=== PATIENT | male | born 1950 | race Caucasian/White ===

== ENCOUNTER 2020-04-12 09:47 | Outpatient (CLI) | payer OTHER, SELFPAY ==
--- NOTE | 2020-04-12 10:00 | CT_ITS ---
WS: [id number] CTA ABDOMINAL AORTA WITH RUNOFF TECHNIQUE: Contrast enhanced CTA of the abdominal aorta with bilateral lower extremity runoff. Multip lanar reformatted images were obtained. MIP reformats were also reviewed. CLINICAL INFORMATION: PVD claudication COMPARISON: None. DLP: 1466.[address] scans at [facility] use at least one of these dose optimization techniques: automat ed exposure control; mA and/or kV adjustment per patient size (includes targeted exams where dose is matched to clinical indication); or iterative reconstruction. FINDINGS: Normal Caliber abdominal aorta. No abdominal aortic aneurysm. Moderate to severe stenosis i nvolving the distal abdominal aorta measuring approximately 40% with peripheral mural thrombus and at heromatous disease. Celiac and SMA are patent. Proximal renal arteries are patent. Bilateral accessor y renal arteries. Inferior mesenteric artery is patent. Liver is normal. Cholelithiasis. Portal vein and splenic vein are patent. Small esophageal hiatal hernia. Lung bases are well aerated. Normal sple en. Normal pancreas. Adrenal glands are normal. Normal renal parenchymal enhancement. No hydronephros is. Small bilateral renal cysts. No abdominal lymphadenopathy. Prominent prostate measuring 4.5 CM. RIGHT: Right common iliac artery is patent with moderate atheromatous disease. Mild stenosis at the o rigin. Right external and internal iliac arteries are patent. Right common femoral artery is patent w ith approximately 40% stenosis in the groin. Superficial femoral and deep femoral arteries are patent . Mild segmental narrowing superficial femoral artery which remains patent to the popliteal hiatus. P opliteal artery is patent with moderate segmental narrowing with dense calcification. Approximately 4 0-50% stenosis above the knee which remains patent. Popliteal artery remains patent to the trifurcati on. Dense calcification at the trifurcation below the knee with dominant two-vessel runoff to the ank le. Poor anterior tibial runoff. LEFT: Left common iliac artery is patent. Mild stenosis of the left common iliac artery origin. Exter nal and internal iliac arteries are patent. Common femoral artery is patent. Mild stenosis at the sup erficial femoral artery origin which remains patent. Deep femoral artery is patent. Mild segmental na rrowing superficial femoral artery which remains patent to the popliteal hiatus. Multisegmental moder ate stenosis involving the popliteal artery. Dense peripheral calcified atheromatous disease. Short s egment popliteal artery occlusion involving with reconstitution just [id number]. Popliteal artery remains patent to the trifurcation. Dense calcification at the trifurcation. Two-vessel runoff to th e ankle with no significant flow in the anterior tibial artery. IMPRESSION: 1. Moderate stenosis in the distal abdominal aorta measuring approximately 40% which remains patent. 2. Short segment LEFT popliteal artery occlusion. This reconstitutes shortly thereafter. 3. Mirror-image popliteal artery narrowing RIGHT lower extremity with maximal stenosis measuring 40- 50%. Right popliteal artery remains patent to the trifurcation. 4. Mirror image 2 vessel runoff to both ankles with poor anterior tibial artery contribution. 5. Cholelithiasis. This can be further evaluated ultrasound. 6. Prominent prostate. Recommend correlation PSA.
[2020-04-12 10:31] LABS: Blood Urea Nitrogen 8 mg/dL (8-23)
[2020-04-12] MEDS: iohexol 350 mg/mL 100 mL Btl IV (10:38)
== END 2020-04-12 09:48 | disposition home or self-care (01) ==
LOC: RADWPI 09:52
PROVIDERS: Visit Provider Internal Medicine Cardiovascular Disease
DX: I73.9 Peripheral vascular disease, unspecified (principal); N40.0 Benign prostatic hyperplasia without lower urinary tract symptoms; K80.20 Calculus of gallbladder without cholecystitis without obstruction
CPT/HCPCS: 75635; 82565; 84520; Q9967

== ENCOUNTER → 2020-11-10 13:18 | Outpatient (BNVA) | payer OTHER, SELFPAY | PROVIDERS: Visit Provider Internal Medicine Cardiovascular Disease | DX: Z20.822 Contact with and (suspected) exposure to COVID-19 (principal) | CPT/HCPCS: 87635 ==

== ENCOUNTER 2020-11-17 16:14 | Observation (INO) | payer OTHER, MEDICARE, SELFPAY ==
[2020-11-09 13:06] LABS: Basophils # 0.1 10^3/uL (0.0-0.1); Basophils % 0.8 %; Eosinophils # 0.2 10^3/uL (0.0-0.8); Eosinophils % 3.1 %; Hematocrit 45.5 % (42.0-52.0); Lymphocytes # 1.6 10^3/uL (0.8-4.8); Mean Corpuscular Hemoglobin 29.7 pg (28.0-34.0); Mean Corpuscular Volume 90.1 fL (80-94); Mean Platelet Volume 12.1 fL (7.4-10.4); Monocytes # 0.5 10^3/uL (0.2-0.9); Monocytes % 7.3 %; Neutrophils # 4.98 10^3/uL (1.8-7.7); Neutrophils % 67.1 %; Nucleated Red Blood Cells % 0 %; Platelet Count 210 10^3/cmm (130-400); Red Blood Count 5.05 10^6/uL (4.1-5.3); White Blood Count 7.4 10^3/uL (4.0-10.0)
[2020-11-09 13:17] LABS: INR 0.97 (0.8-1.2)
[2020-11-09 13:43] LABS: Anion Gap 13.7 (5-19); Blood Urea Nitrogen 18 mg/dL (8-23); Calcium 9.3 mg/dL (8.5-10.5); Carbon Dioxide 28 mmol/L (22-29); Chloride 95 mmol/L (98-107); Glucose 346 mg/dL (65-115); Osmolality Calculated 290 mOsm/kg (285-295); Potassium 4.7 mmol/L (3.5-5.1); Sodium 132 mmol/L (136-145)
[2020-11-17] VITALS (33 sets, daily range): BP systolic 135–228; BP diastolic 59–119; PULSE 51–67; RESP 9–23; TEMP 36.6–36.7; O2SAT 94–98; BMI 32.9
--- NOTE | 2020-11-17 11:00 | XACV_ITS ---
Wt: 101 kg BSA: 2.25 m2 Any Known Allergies: Other Gender: Male : 1950 Exam Type: Invasive Peripheral Vascular Procedure(s): Procedure Description: Peripheral Cath Diagnostic Procedure Procedure Description: Abdominal aortic angiography Procedure Description: Lower extremities' angiography Procedure Description: Peripheral vascular Intervention Procedure Description: PV Balloon Exam Priority: Routine Lower Extremity Interventional Findings Indication for peripheral angiogram: Lifestyle limiting claudication, Maria L classification 2 , [place] 3Abdominal angiogram: Abdominal angiogram without aneurysm normal aortaRenal artery bilateral no significant stenosisBilateral common iliac normalBilateral external and internal iliac are normalBilateral common femoral, normalBilateral profundofemoralLeft superficial femoral artery mid to distal tendon severe stenosis especially in the distal segment just before left popliteal there is subtotal occluded shot stenosis, there appeared to be culpritRight SFA: Luminal irregularities except in the distal segment there is a moderate stenosisBilateral popliteal and tibioperoneal trunk has luminal irregularityBilateral two-vessel runoff noted. Conclusions Indication for peripheral angiogram: Lifestyle limiting claudication, Maria L classification 2 , [place] 3Abdominal angiogram: Abdominal angiogram without aneurysm normal aortaRenal artery bilateral no significant stenosisBilateral common iliac normalBilateral external and internal iliac are normalBilateral common femoral, normalBilateral profundofemoralLeft superficial femoral artery mid to distal tendon severe stenosis especially in the distal segment just before left popliteal there is subtotal occluded shot stenosis, there appeared to be culpritRight SFA: Luminal irregularities except in the distal segment there is a moderate stenosisBilateral popliteal and tibioperoneal trunk has luminal irregularityBilateral two-vessel runoff noted. null was treated with two Balloon. Recommendations Continue current medical management and risk factor modification. Follow up with PCP as directed. Continue medical management and risk factor modification. Hemodynamic Data Phase:Rest AO : 142.0 / 57.0 ( 87.0 ) @ 9:39:00 AM Access Site Site: Right Femoral artery Sheath Size: 6 Fr Hemost... Method: Suture Hemost... Success: Successful Procedure Details Findings Procedure Consent Obtained. Pre-Procedure Time Out. Identified patient by full name and date of as verbalized by the patient/guarantor. Does the consent match the physician's order: Yes. Accurate & Complete Informed Consent: Yes. Inpatient/Outpatient History & Physical on Chart: Yes. If H&P is completed, is and addenduem needed: No; If yes, is the addendum complete: N/A. Visualize and Verify Site with Patient/Guarantor: N/A. Relevant Radiology Images available: N/A. Pre-op teaching completed and patient verbalized understanding. The risks, benefits, and alternatives of sedation and/or procedure were discussed by physician. The patient agrees to continue. Procedure started. Correct patient, site and procedure confirmed by cath team. PERRLA. Strong, equal hand machine lacer bilaterally. Lungs clear x 5 lobes. IV Site on Arrival: 20 gauge in the left anticubital. IV Fluids: 0.9% NaCl at KVO. 0 mL infused prior to agriculture laborer. Physician arrived. Equipment: Peripheral. Pre Procedural Pulses: right dorsalis pedis was Absent. Pre Procedural Pulses: left dorsalis pedis was 2+. Pre Procedural Pulses: bilateral posterior tibial was 1+. Pre Procedural Pulses: bilateral radial was 2+. Oxygen started at 2liters/min via nasal canula. bilateral groins was prepped with chloroprep then draped in the usual sterile fashion. Baseline sample Acquired. HR: 62 BPM. Physician scrubbed in. Immediate Pre-Procedure Time Out. Correct Patient: Yes; Correct Procedure: Yes; Correct Site: Yes; Correct Patient Position: Yes; Correct Supplies: Yes; Dried Flammable Prep: Yes; Blood Products Available: N/A;. Lidocaine 1% infiltrated to the right groin. Arterial access obtained with micropuncture set. Cardiac Cath Pack. ACIST Manifold Kit Model BT 2000. Heparinized Saline (2 units/mL), 1000 mL bag. Inventory is JJ 6F 11cm Brisa Plus Sheath. A CORDIS 5F UF catheter 65cm was advanced over the wire and used for Abdominal aortogram with runoff. Abdominal aortogram performed in AP @ 10 mL/sec for a total of 30 mL. Glidewire inserted to L SFA. Catheter removed over the glide wire. Short 6 fr sheath exchanged for long 45 cm 6 Fr Flexor sheath. Inventory is CK 6 FR FLEXOR SHEATH 45CM. Left leg runoff 10 ml for total 20 ml. Left leg runoff 10 ml for total 20 ml. AB [place] 35 OTW [id number] balloon inserted. Wire came back. Balloon removed. SEEKER support catheter inserted over glidewire. Seated in the popliteal. Hand injection through Seeker. Glidewire inserted and seated in peroneal trunk. Seeker catheter out. Side port of sheath attached to Normal Saline flush at KVO to maintain patency. Inflation number : 1 A AB ARMADA 35 OTW [id number] was prepped and advanced across the Superficial Femoral, Left , then inflated to 10 RUDI for 2:03 seconds. Balloon out over wire. Inflation number : 2 A Bard Lutonix 035 6.0x40mm was prepped and advanced across the Superficial Femoral, Left , then inflated to 7 RUDI for 1:01 seconds. Inflation number: 3 The Bard Lutonix 035 6.0x40mm was reinflated across the Superficial Femoral, Left, to 7 RUDI for 1:01 seconds. Inflation number: 4 The Bard Lutonix 035 6.0x40mm was reinflated across the Superficial Femoral, Left, to 7 RUDI for 0:30 seconds. Balloon pulled back. Left leg runoff 10 ml for total 20 ml. Balloon out over wire. Left leg runoff 10 ml for total of 30 ml. Long 45 cm 6 fr flexor sheath exchanged for short 6 fr sheath. Glidewire out. Right leg runoff through sheath 10 ml for total of 30 ml. Physician scrubbed out. A Suture was successful obtaining hemostatsis at the Right Femoral artery insertion site. Sheath(s) sutured into position with 2-0 silk and sterile 4x4's and Op-site applied over the site. No oozing or signs and symptoms of hematoma noted. Post Procedure: Pulses reassessed and unchanged. PERRLA. Strong, equal hand machine lacer bilaterally. No VTE prophylaxis required. Medication's Wasted: Heparin = 2000 units. Total IV fluids: 75 mL. Contrast type used: Visipaque 320 mgI/mL, 500 mL bottle. Post-op diagnosis: PVD. Complications: none. Estimated blood loss: 5mL-10mL. Estimated blood loss: 5mL-10mL. Procedure completed. Patient transferred by bed to 1st floor. Vital chart was stopped. Procedure Medications Start: 2:27 PM Stop: 2:27 PM Medication: Versed Amount: 1 mg Route: I.V. Start: 2:27 PM Stop: 2:27 PM Medication: Fentanyl Amount: 50 mcg Route: I.V. Start: 2:34 PM Stop: 2:34 PM Medication: Versed Amount: 1 mg Route: I.V. Start: 2:34 PM Stop: 2:34 PM Medication: Fentanyl Amount: 50 mcg Route: I.V. Start: 2:48 PM Stop: 2:48 PM Medication: Heparin Amount: 7000 units Route: I.V. I, the attending physician, have reviewed and verified all procedure medications. Yes, all medications given per verbal order History/Risk Factors Hypertension: Yes Dyslipidemia: Yes Peripheral Arterial Disease (PAD): Yes Obesity: Yes Renal Disease: No Prior Interventions PCI: No CABG: Yes Valve Surgery: No Report Signatures Finalized by Christine Escobedo MD on 12/03/2020 08:25 PM
[2020-11-17] MEDS: diphenhydrAMINE 50 mg Capsule PO (11:50)
--- NOTE | 2020-11-17 14:12 | W.PM.OPSFHP ---
Same Day Surgery H&P Indication for Procedure/HPI DATE OF PROCEDURE: November 17, 2020 CHIEF COMPLAINT/INDICATIONFOR SURGICAL PROCEDURE: Lifestyle limiting claudication more on the left than right PREOP DIAGNOSIS: Severe peripheral vascular disease lifestyle limiting claudication. PLANNED PROCEDRUE: Operation Date: 11/17/20 12:00 Proposed Procedures p Peripheral angiogram 69321 I73.9(Not Applicable) - Christine Escobedo MD 70-year-old male past medical history significant for coronary artery disease status post CABG, COPD, smoking, hypertension for worsening of lifestyle limiting claudication has been referred for CT angiogram which showed occlusion of left popliteal vessel. Patient failed conservative management including cilostazol and walking exercises. He is here for peripheral angiogram now for possible intervention. Patient has been explained all risk benefit and alternative for the procedure. He would like to proceed with it. Patient understand the risk of major minor bleed, infection hematoma laceration urgent emergent surgery acute limb ischemia amputation and worse case scenario . He understand the warning by FDA using drug-coated balloon and would like to use it even though it showed higher mortality in some subgroup. He has been consented for. Medications/Allergies* Home Medications Medication Instructions Recorded Confirmed Type glimepiride 4 mg tablet 4 mg PO DAILY 04/03/20 11/16/20 History insulin glargine 100 unit/mL 96 unit SUBCUT DAILY ml 04/03/20 11/16/20 History subcutaneous solution losartan 100 mg tablet 50 mg PO DAILY tab 04/03/20 11/16/20 History Allergies/Adverse Reactions Allergy/AdvReac Type Severity Reaction Status Date / Time gabapentin Allergy Unknown Unknown Verified 04/03/20 10:21 lisinopril Allergy Unknown Unknown Verified 04/03/20 10:21 lithium Allergy Unknown Unknown Verified 04/03/20 10:21 olanzapine Allergy Unknown Unknown Verified 04/03/20 10:24 quetiapine Allergy Unknown Unknown Verified 04/03/20 10:24 Current Medications: Generic Name Dose Route Start Last Admin Trade Name Freq PRN Reason Stop Dose Admin Sodium Chloride 1,000 mls @ 50 mls/hr 11/17/20 11:00 11/17/20 11:50 Sodium Chloride 0.9% IV 11/18/20 06:59 Not Given .Q20H ONE Pertinent History/Comorbid Conditions* Medical History (Updated 04/03/20 @ 13:13 by Christine Escobedo MD) Claudication in peripheral vascular disease Diabetes mellitus HTN (hypertension) Hyperlipidemia Surgical History (Updated 04/03/20 @ 13:12 by Christine Escobedo MD) S/P CABG (coronary artery bypass graft) Family History (Updated 04/03/20 @ 12:25 by Ava Decker LPN) Heart disease Father Social History Smoking and tobacco status: former smoker Pertinent Exam Findings alert, oriented x 3, clear to auscultation bilaterally and operative site marked Conscious Sedation Assessment PATIENT ASSESSED PRIOR TO SEDATION, WITH NO CHANGE NOTED: Yes AIRWAY EVAL/ANESTHESIA PLAN: ASA I, Risks, benefits & alternatives of sedation and/or procedure discussed and Patient agrees to continue as planned Recommendations Surgery/Procedure today Coding Level of Care Code Acute Domestic Housekeeper for Orestes Feliciano
--- NOTE | 2020-11-17 16:21 | PC.NURSE ---
spoke with Dr brar with concerns no sheath removal orders instructions to obtain PTT and pull if less than 45
--- NOTE | 2020-11-17 18:20 | PC.NURSE ---
notified Dr brar patient PTT results at this time instructions to redraw PTT in 2 hours
[2020-11-17 18:30] LABS: Glucose Point of Care 178 mg/dL (70-110)
[2020-11-17 19:51] LABS: Partial Thromboplastin Time 28.4 SECONDS (23.9-36.7)
[2020-11-17] MEDS: fentaNYL 50 mcg/mL INJ 2mL IVP (21:03)
--- NOTE | 2020-11-17 21:14 | PC.NURSE ---
sheath pulled without incident pressure held for 20 minutes with no hematoma or significant bleeding noted. Pulses remained present pre and post sheath pull. Pt denies any complaints at this time.
[2020-11-18] VITALS: BP 163/73; PULSE 53; RESP 18
--- NOTE | 2020-11-18 03:12 | PC.NURSE ---
Spoke with Dr. Torres regarding this patient's NS fluid orders. Pt has received 1 liter and received order to stop NS.
[2020-11-18 04:06] VITALS: BP 187/76; PULSE 54; RESP 20; TEMP 36.3; O2SAT 96
[2020-11-18 05:45] LABS: Basophils # 0.1 10^3/uL (0.0-0.1); Basophils % 0.9 %; Eosinophils # 0.3 10^3/uL (0.0-0.8); Eosinophils % 3.8 %; Hematocrit 45.6 % (42.0-52.0); Hemoglobin 14.8 g/dL (11.7-16.6); Lymphocytes # 1.5 10^3/uL (0.8-4.8); Lymphocytes % 19.9 %; Mean Corpuscular HGB Conc 32.5 g/dL (30.0-36.0); Mean Corpuscular Hemoglobin 29.4 pg (28.0-34.0); Mean Corpuscular Volume 90.7 fL (80-94); Mean Platelet Volume 12.7 fL (7.4-10.4); Monocytes # 0.7 10^3/uL (0.2-0.9); Monocytes % 8.6 %; Neutrophils # 5.01 10^3/uL (1.8-7.7); Neutrophils % 66.1 %; Nucleated Red Blood Cells % 0 %; Platelet Count 175 10^3/cmm (130-400); Red Blood Count 5.03 10^6/uL (4.1-5.3); Red Cell Distribution Width 13.2 % (12.1-15.1); White Blood Count 7.6 10^3/uL (4.0-10.0)
[2020-11-18 06:00] VITALS: PULSE 57
[2020-11-18 07:37] LABS: Blood Urea Nitrogen 18 mg/dL (8-23); Calcium 8.8 mg/dL (8.5-10.5); Carbon Dioxide 27 mmol/L (22-29); Chloride 102 mmol/L (98-107); Glucose 176 mg/dL (65-115); Osmolality Calculated 292 mOsm/kg (285-295); Sodium 138 mmol/L (136-145)
[2020-11-18 07:52] LABS: Anion Gap 13.8 (5-19); Potassium 4.8 mmol/L (3.5-5.1)
[2020-11-18] MEDS: losartan 50 mg Tablet PO ×2 (07:54→09:58)
[2020-11-18 08:00] VITALS: PULSE 62; RESP 19; TEMP 36.3; O2SAT 97
[2020-11-18 09:58] VITALS: BP 176/105
[2020-11-18] MEDS: amlodipine 10 mg Tablet PO (10:01)
--- NOTE | 2020-11-18 10:06 | P.SS_ITS ---
Short Stay Summary Providers Date of Admit/Discharge: 11/29/20 Attending Provider: Christine Escobedo MD Primary Care Provider: [facility] Chief Complaint: Peripheral Diagnostic HPI History of Present Illness Ravinder Vallejo is a 70 year old male with past medical history significant for coronary artery disease status post CABG, COPD, smoking, hypertension for worsening of lifestyle limiting claudication has been referred for CT angiogram which showed occlusion of left popliteal vessel. Patient failed conservative management including cilostazol and walking exercises. Review of Systems Const: Denies: fever(s) or chills Eyes: Denies: change in vision Card: Reports: dyspnea on exertion; Denies: chest pain, palpitations, swelling of feet/ankles, lightheadedness or orthopnea Resp: Denies: dyspnea, productive cough or non-productive cough GI: Denies: abdominal pain, nausea or vomiting Musc: Denies: neck pain, back pain or joint pain Neuro: Denies: headache(s) or dizziness Psych: Reports: anxiety and depression Jordon/Lymph: Reports: easy bruising; Denies: easy bleeding Home Meds/Allergies Home Medications and Allergies Home Medications Medication Instructions Recorded Confirmed Type glimepiride 4 mg tablet 4 mg PO DAILY 04/03/20 11/24/20 History insulin glargine 100 unit/mL 96 unit SUBCUT DAILY ml 04/03/20 11/24/20 History subcutaneous solution Allergies Allergy/AdvReac Type Severity Reaction Status Date / Time gabapentin Allergy Unknown Unknown Verified 11/24/20 10:36 lisinopril Allergy Unknown Unknown Verified 11/24/20 10:36 lithium Allergy Unknown Unknown Verified 11/24/20 10:36 olanzapine Allergy Unknown Unknown Verified 11/24/20 10:36 quetiapine Allergy Unknown Unknown Verified 11/24/20 10:36 PFSH Acute PFSH: Medical History Claudication in peripheral vascular disease Diabetes mellitus HTN (hypertension) Hyperlipidemia Peripheral Vascular Disease Surgical History S/P CABG (coronary artery bypass graft) Family History Father Heart disease Social History Smoking and tobacco status: former smoker Vitals/I&O/Wt Last Vital Signs Temp 97.4 F L 11/18/20 08:00 Pulse 62 11/18/20 08:00 Resp 19 H 11/18/20 08:00 BP 176/105 11/18/20 09:58 Pulse Ox 97 11/18/20 08:00 11/17/20 11/18/20 11/18/20 22:59 06:59 14:59 Intake Total 240 / 240 120 / 120 Balance 240 / 240 120 / 120 Weight last 48 hrs Weight 223 lb Physical Exam Narrative: EXAM NARRATIVE: GENERAL: Patient is alert, awake and oriented x3. [] NECK: No jugular vein distension. [] HEENT: No cyanosis. No icterus. No pallor. [] HEART: Regular S1 and S2. No murmur, rub or gallop. [] LUNGS: Clear to auscultate bilaterally. [] ABDOMEN: Soft, nontender and nondistended. Positive bowel sounds. No guarding, rebound or tenderness. [] CENTRAL NERVOUS SYSTEM: Grossly nonfocal. [] EXTREMITIES: Lower extremities with no edema bilaterally. Pulses palpable in the lower extremities, both dorsalis pedis and posterior tibial. [] Hospital Course Hospital Course Ravinder Vallejo is a 70 year old male with past medical history significant for coronary artery disease status post CABG, COPD, smoking, hypertension for worsening of lifestyle limiting claudication has been referred for CT angiogram which showed occlusion of left popliteal vessel. Patient failed conservative management including cilostazol and walking exercises. He underwent successul revascularization of the left SFA yesterday with balloon angioplasty. Patient is doing well. Will be discharged today SSS Data Data Completed and Pending: Pending at discharge Category Date Time Status DYE MAKER request for service Routin e Exams 11/17/20 11:00 Ordered Discharge Plan Discharge Patient Disposition: Home Condition: Stable Prescriptions: New amlodipine 10 mg Tablet 10 mg PO DAILY Qty: 90 RF: 3 Continued glimepiride 4 mg tablet 4 mg PO DAILY RF: 0 insulin glargine 100 unit/mL solution 96 unit SUBCUT DAILY RF: 0 Changed losartan 100 mg tablet 100 mg PO DAILY Qty: 0 RF: 0 No Action clopidogrel 75 mg tablet 75 mg PO DAILY Qty: 30 RF: 0 Discharge Orders: Discharge Order (Routine); Ordered 11/18/20 Ordered By: Davey Torres Referrals: Christine Escobedo MD [Physician] - 1 month ([facility] will be calling to schedule a cardiology followup with dr. Escobedo to be seen in approx. One Month. If you don't hear from them by Friday, please give them a call. Thank you) Marii Patel FNP [Nurse Practitioner] - 7-10 days ([facility] will be calling to schedule a post Procedure followup with JIMENA Osman to be seen in 7 to 10 days. If you don't hear from them by Friday, please give them a call. Thank you) Discharge Diet: Cardiac Discharge Activity: Increase activity as tolerated Patient Instructions: Amlodipine (By mouth), Peripheral Vascular Angioplasty (DC), Post Angiogram Home Care Instructions Activity Restrictions/Additional Instructions: Please do not lift more than 5 pounds of weight for the next 5 days Attestations Medical Necessity Statement*: Care not expected to cross 2 midnights. Patient underwent successful revascularization of the left lower extremity yesterday and is ready to be discharged today. Time Spent in Patient Care*: less than 30 min Quality Metrics Clinical Quality Measures: During this hospital stay, did patient experience: None Coding Level of Care Code Acute Donor Services Technician for Orestes Feliciano
[2020-11-18 10:47] VITALS: BP 176/105
--- NOTE | 2020-11-18 12:19 | PC.NURSE ---
discharge instructions given and explained.pt verb understanding.prescriptions given through meds to beds...[facility]).discharged via w/c to exit.friend to drive pt home.
== END 2020-11-18 12:22 | disposition home or self-care (01) ==
LOC: CSU 16:15
PROVIDERS: Internal Medicine; Admitting Provider Internal Medicine Cardiovascular Disease; Visit Provider Internal Medicine Cardiovascular Disease
DX: I73.9 Peripheral vascular disease, unspecified (principal); I25.10 Atherosclerotic heart disease of native coronary artery without angina pectoris; Z95.1 Presence of aortocoronary bypass graft; J44.9 Chronic obstructive pulmonary disease, unspecified; F17.210 Nicotine dependence, cigarettes, uncomplicated; I10 Essential (primary) hypertension; E11.9 Type 2 diabetes mellitus without complications; E78.5 Hyperlipidemia, unspecified
CPT/HCPCS: 36415; 36416; 37224; 75625; 75716; 80048; 82962; 85025; 85610; 85730; C1725; C1769; C1887; C1894; C2623; G0378; J1644; J2250; J3010; J7030; Q0163; Q9967

== ENCOUNTER → 2020-11-24 11:34 | Outpatient (BNVA) | payer OTHER, MEDICARE, SELFPAY | PROVIDERS: PCP Family Medicine; Visit Provider Nurse Practitioner Family | DX: I73.9 Peripheral vascular disease, unspecified (principal); Z95.1 Presence of aortocoronary bypass graft | CPT/HCPCS: 80048 ==

== ENCOUNTER 2021-06-08 16:40 | Emergency (ER) | payer OTHER, MEDICARE, SELFPAY ==
[2021-06-08 16:46] VITALS: BP 131/61; PULSE 66; RESP 18; TEMP 36; O2SAT 96; BMI 30.9
--- NOTE | 2021-06-08 17:00 | ED_ITS ---
HPI - Neuro Symptoms/Deficit General: Chief Complaint: Neuro Symptoms/Deficit Stated Complaint: NEURO SX: SLURRED SPEECH, DIZZY(THINKS OVERNIGHT) Time Seen by Provider: 06/08/21 17:00 History of Present Illness: HPI Narrative: Mr Vallejo is a 71-year-old gentlem an with history of hypertension, peripheral vascular disease, CABG presents emergency department due to strokelike symptoms. He reports being at his baseline health yesterday without changes. He went to bed feeling normally and woke up multiple times approximately 3 times overnight to urinate at which point he felt normal. When he woke up this morning he noticed slurred speech and gait difficulties. These are moderate intensity and have remained mildly worsening since onset. He denies similar episodes in the past. No other specific exacerbating, associated symptoms, provoking, or alleviating factors. Review of Systems General: Reports: 10 or more systems reviewed and unremarkable except in HPI and below PFSH ED PFSH: Medical History Claudication in peripheral vascular disease Diabetes mellitus HTN (hypertension) Hyperlipidemia Peripheral Vascular Disease Surgical History S/P CABG (coronary artery bypass graft) Family History Father Heart disease Social History Smoking and tobacco status: former smoker Physical Exam Narrative: EXAM NARRATIVE: GENERAL/CONSTITUTIONAL - well-appearing. No acute distress. Eyes - PERRL, no conjunctival injection ENMT - Atraumatic external nose and ears. Moist mucous membranes NECK - supple. trachea midline CARDIOVASCULAR - regular rate and rhythm. Peripheral pulses 2+ and equal RESPIRATORY -clear to auscultation bilaterally. ABDOMEN/GI - Nontender/Nondistended. MSK - Extremities without obvious deformity or tenderness to palpation SKIN - Warm, Dry NEURO - alert and appropriately oriented. Extraocular movements intact. Mild right facial droop. Speech normal. Coordination intact. Gait instability.sensory equal bilaterally. Moves all extremities. Course ED course: - Patient was seen and evaluated by me at bedside - Patient placed on cardiac monitors, IV access obtained - Initial evaluation notable for concern for strokelike symptoms with symptom onset greater than TPA window - Labs notable for no acute hematologic or metabolic abnormality to explain the patient's symptoms - Imaging notable for no acute intracranial hemorrhage or mass. No obvious evidence of stroke however the patient has significant intracranial vascular disease. Based on neurologic symptoms I recommend MRI and admission for the patient - Upon serial reexamination after treatment the patient was similar - I recommended admission which the patient adamantly declines at this time. The patient understands the relevant information of the nature of their medical condition, as well as the risks, benefits, and treatment alternatives (including non-treatment), consequences of refusing care, and can competently communicate a rational explanation about their choice of care options. - The patient understands they are welcome to return to the hospital at any time to receive the recommended care or any other care at any time. Vital Signs: Vital signs: Vital Signs Temperature 96.8 F L 06/08/21 16:46 Pulse Rate 70 06/08/21 19:34 Respiratory Rate 18 06/08/21 19:34 Blood Pressure 140/98 06/08/21 19:34 Pulse Oximetry 99 06/08/21 19:34 MDM - Neuro Symptoms/Deficit Medical Records: Attestation: I reviewed the patient's medical records. Lab Data: Attestation: I reviewed the patient's lab results. Labs: Lab Results 06/08/21 06/08/21 06/08/21 16:52 17:25 17:25 WBC 8.5 10^3/uL 10^3/ uL (4.0-10.0) RBC 5.11 10^6/uL 10^6 /uL (4.1-5.3) Hgb 14.9 g/dL g/dL (11.7-16.6) Hct 44.7 % % (42.0-52.0) MCV 87.5 fl fl (80-94) MCH 29.2 pg pg (28.0-34.0) MCHC 33.3 g/dL g/dL (30.0-36.0) RDW 13.4 % % (12.1-15.1) Plt Count 246 10^3/cmm 10^3 /cmm (130-400) MPV 11.8 fL H fL (7.4-10.4) Neut % (Auto) 73.7 % % Lymph % (Auto) 17.0 % % Loving % (Auto) 6.5 % % Eos % (Auto) 1.9 % % Baso % (Auto) 0.5 % % Neut # (Auto) 6.27 10^3/uL 10^3 /uL (1.8-7.7) Lymph # (Auto) 1.4 10^3/uL 10^3/ uL (0.8-4.8) Loving # (Auto) 0.6 10^3/uL 10^3/ uL (0.2-0.9) Eos # (Auto) 0.2 10^3/uL 10^3/ uL (0.0-0.8) Baso # (Auto) 0.0 10^3/uL 10^3/ uL (0.0-0.1) Nucleated RBC % (a uto) 0 % % Nucleated RBCs # 0.0 /100WBC /100W BC PT 13.20 SECONDS SEC ONDS (12.1-14.9) INR 0.97 (0.8-1.2) APTT 27.7 SECONDS SECO NDS (23.9-36.7) Sodium Potassium Chloride Carbon Dioxide Anion Gap BUN Creatinine GFR Calculation Glucose POC Glucose 265 mg/dL H mg/dL (70-110) Calculated Osmolal ity Calcium Total Bilirubin AST ALT Alkaline Phosphata se Total Protein Albumin Globulin TSH Urine Color Urine Appearance Urine pH Ur Specific Gravit y Urine Protein Urine Glucose (UA) Urine Ketones Urine Blood Urine Nitrate Urine Bilirubin Urine Urobilinogen Ur Leukocyte Neyda ase Urine RBC Urine WBC Ur Squamous Epith Cells Amorphous Sediment Urine Bacteria 06/08/21 06/08/21 17:25 18:13 WBC RBC Hgb Hct MCV MCH MCHC RDW Plt Count MPV Neut % (Auto) Lymph % (Auto) Loving % (Auto) Eos % (Auto) Baso % (Auto) Neut # (Auto) Lymph # (Auto) Loving # (Auto) Eos # (Auto) Baso # (Auto) Nucleated RBC % (a uto) Nucleated RBCs # PT INR APTT Sodium 135 mmol/L L mmol /L (136-145) Potassium 4.4 mmol/L mmol/L (3.5-5.1) Chloride 101 mmol/L mmol/L (98-107) Carbon Dioxide 24 mmol/L mmol/L (22-29) Anion Gap 14.4 (5-19) BUN 15 mg/dL mg/dL (8-23) Creatinine 0.9 mg/dL mg/dL (0.7-1.2) GFR Calculation Not Reportable Glucose 268 mg/dL H mg/dL (65-115) POC Glucose Calculated Osmolal ity 290 mOsm/kg mOsm/ kg (285-295) Calcium 8.9 mg/dL mg/dL (8.5-10.5) Total Bilirubin 0.6 mg/dL mg/dL (0.15-1.2) AST 14 U/L U/L (0-40) ALT 15 U/L U/L (0-41) Alkaline Phosphata se 60 IU/L IU/L (40-130) Total Protein 6.8 g/dL g/dL (6.6-8.7) Albumin 3.9 g/dL g/dL (3.5-5.2) Globulin 2.9 g/dL g/dL (1.3-4.6) TSH 1.05 uIU/mL uIU/m L (0.27-4.20) Urine Color Yellow (Yellow) Urine Appearance Clear (CLEAR) Urine pH 5 (5-7) Ur Specific Gravit y 1.020 (1.005-1.030) Urine Protein 1+ H (Negative) Urine Glucose (UA) 4+ H (Normal) Urine Ketones Negative (Negative) Urine Blood Neg (Negative) Urine Nitrate Negative (Negative) Urine Bilirubin Neg (Negative) Urine Urobilinogen 1 mg/dL H mg/dL (Negative) Ur Leukocyte Neyda ase Negative (Negative) Urine RBC 10-15 /hpf H /hpf (0-2) Urine WBC Not Reportable Ur Squamous Epith Cells 0-4 /hpf H /hpf (0-5) Amorphous Sediment Not Reportable Urine Bacteria Trace /hpf /hpf (NONE) Discharge Plan Discharge Patient Disposition: Left Against Medical Advice Clinical Impression: Stroke-like symptoms, Intracranial vascular stenosis Condition: Fair Prescriptions: No Action cilostazol 50 mg tablet 50 mg PO BID Qty: 180 RF: 3 glimepiride 4 mg tablet 4 mg PO DAILY RF: 0 insulin glargine 100 unit/mL solution 96 unit SUBCUT DAILY RF: 0 losartan 100 mg tablet 100 mg PO DAILY Qty: 30 RF: 0 clopidogrel 75 mg tablet 75 mg PO DAILY Qty: 90 RF: 3 amlodipine 10 mg Tablet 10 mg PO DAILY Qty: 90 RF: 3 Discharge Orders: Discharge ED (Routine); Ordered 06/08/21 Ordered By: Geraldo Gerard Referrals: Cheryle Santos MD [Primary Care Provider] - Discharge Diet: Cardiac and Diabetic Discharge Activity: Resume usual activity Patient Instructions: Ischemic Stroke (DC) Activity Restrictions/Additional Instructions: Thank you for visiting the emergency department. You were seen and evaluated for strokelike symptoms. Well no acute stroke was identified on CT scan you do have fairly severe intracranial vascular abnormalities. I strongly recommend admission to the hospital which she declined. You were choosing to leave AGAINST MEDICAL ADVICE. Please follow-up with your primary care provider. You may return to the emergency department for any reason at that time. Stand Alone Forms: Against Medical Advice Coding Level of Care Code ED Roll Coating Machine Operator for Orestes Feliciano
--- NOTE | 2021-06-08 17:01 | CTR_ITS ---
PROCEDURE INFORMATION: Exam: CT Head Without Contrast Exam date and time: 06/08/2021 5:01 PM Age: 71 years old Clinical indication: Speech disturbance and walking, difficulty and weakness, facial; Slurred speech; Additional info: Stroke like symptom TECHNIQUE: Imaging protocol: Computed tomography of the head without contrast. Total images: 209 Radiation optimization: All CT scans at this facility use at least one of these dose optimization techniques: automated exposure control; mA and/or kV adjustment per patient size (includes targeted exams where dose is matched to clinical indication); or iterative reconstruction. COMPARISON: No relevant prior studies available. RADIATION DOSE METRICS: Total DLP (mGy-cm): 974.97 FINDINGS: Brain: No evidence of active or acute intracranial pathologic process, hemorrhage, or trauma. No visible significant small vessel ischemic disease. No hyperdense MCA or insular ribbon sign. No mass effect. No midline shift. Atrophic changes greater than anticipated for patient's chronological age. Cerebral ventricles: No ventriculomegaly. Paranasal sinuses: Visualized sinuses are unremarkable. No fluid levels. Mastoid air cells: Visualized mastoid air cells are well aerated. Bones/joints: Unremarkable. No acute fracture. Soft tissues: Unremarkable. Other findings: Motion artifact. CT/CT head wo con* [id number] IMPRESSION: No evidence of active or acute intracranial pathologic process, hemorrhage, or trauma. Radiation Dose CTDIVOL = (mGy): DLP = 974.97 (mGy-cm)
--- NOTE | 2021-06-08 17:01 | CTR_ITS ---
PROCEDURE INFORMATION: Exam: CT Angiography Head With Contrast, Arteriography Exam date and time: 06/08/2021 5:01 PM Age: 71 years old Clinical indication: Speech disturbance and weakness; Slurred speech; Additional info: Stroke like symptoms TECHNIQUE: Imaging protocol: Computed tomography angiography of the head with contrast. Exam focused on the arteries. 3D rendering (Not supervised by radiologist): MIP and/or 3D reconstructed images were created by the technologist. Total images: 812 Radiation optimization: All CT scans at this facility use at least one of these dose optimization techniques: automated exposure control; mA and/or kV adjustment per patient size (includes targeted exams where dose is matched to clinical indication); or iterative reconstruction. Contrast material: VISI 320; Contrast volume: 95 ml; Contrast route: INTRAVENOUS (IV); COMPARISON: CT head wo con* [id number] 06/08/2021 5:32 PM RADIATION DOSE METRICS: Total DLP (mGy-cm): 2306.46 FINDINGS: ANTERIOR CIRCULATION: Right internal carotid artery: Extensive cerebral arteriosclerosis of the internal carotid artery terminus resulting and upwards of 80% short-segment stenosis distally. Thinning of the petrous portion of the right internal carotid artery with stenosis upwards of 60% potentially from soft atheromatous plaque. Intracranial segment remains patent. No aneurysm. Right middle cerebral artery: Unremarkable. No occlusion or significant stenosis. No aneurysm. 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 No occlusion or significant stenosis of the remainder of the anterior cerebral artery filled primarily through the ACOMM from the left. No aneurysm. Left internal carotid artery: Extensive cerebral arteriosclerosis of the internal carotid artery terminus resulting in upwards of 60-70% stenosis distally. Petrous portion without stenosis. Intracranial segment remains patent. No aneurysm. Left middle cerebral artery: Unremarkable. No occlusion or significant stenosis. No aneurysm. Left anterior cerebral artery: Unremarkable. No occlusion or significant stenosis. No aneurysm. POSTERIOR CIRCULATION: Right vertebral artery: Unremarkable. No occlusion or significant stenosis. No aneurysm. Left vertebral artery: Unremarkable. No occlusion or significant stenosis. No aneurysm. Basilar artery: Unremarkable. No occlusion or significant stenosis. No aneurysm. Right posterior cerebral artery: Unremarkable. No occlusion or significant stenosis. No aneurysm. Left posterior cerebral artery: Unremarkable. No occlusion or significant stenosis. No aneurysm. IMPRESSION: 1. Extensive cerebral arteriosclerosis of the right internal carotid artery terminus resulting and upwards of 80% short-segment stenosis distally. Thinning of the petrous portion of the right internal carotid artery with stenosis upwards of 60% potentially from soft atheromatous plaque. Intracranial segment remains patent. 2. 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 No occlusion or significant stenosis of the remainder of the anterior cerebral artery filled primarily through the ACOMM from the left. 3. Extensive cerebral arteriosclerosis of the left internal carotid artery terminus resulting in upwards of 60-70% stenosis distally. Petrous portion without stenosis. Intracranial segment remains patent. PROCEDURE INFORMATION: Exam: CT Angiography Neck With Contrast Exam date and time: 06/08/2021 5:01 PM Age: 71 years old Clinical indication: Speech disturbance and weakness; Slurred speech; Additional info: Stroke like symptoms TECHNIQUE: Imaging protocol: Computed tomography angiography of the neck with contrast. 3D rendering (Not supervised by radiologist): MIP and/or 3D reconstructed images were created by the technologist. Radiation optimization: All CT scans at this facility use at least one of these dose optimization techniques: automated exposure control; mA and/or kV adjustment per patient size (includes targeted exams where dose is matched to clinical indication); or iterative reconstruction. Contrast material: VISI 320; Contrast volume: 95 ml; Contrast route: INTRAVENOUS (IV); COMPARISON: CT head wo con* [id number] 06/08/2021 5:32 PM RADIATION DOSE METRICS: Total DLP (mGy-cm): 2306.46 FINDINGS: Right common carotid artery: No stenosis. No dissection or occlusion. Right internal carotid artery: No hemodynamically significant stenosis of the extracranial segment. No dissection or occlusion. Tortuous course of the proximal vessel. Right external carotid artery: No occlusion or hemodynamically significant stenosis of the origin. Left common carotid artery: No stenosis. No dissection or occlusion. Left internal carotid artery: No hemodynamically significant stenosis of the extracranial segment. No dissection or occlusion. Left external carotid artery: No occlusion or hemodynamically significant stenosis of the origin. Right vertebral artery: No stenosis. No dissection or occlusion. Left vertebral artery: No stenosis. No dissection or occlusion. Soft tissues: Unremarkable. No significant soft tissue swelling. Bones/joints: No visible acute osseous abnormality. Advanced degenerative disease and degenerative disc disease with disc space height loss and spondylosis deformans C5/C6 and C6/C7. CT/CT angio headneck* [id number] IMPRESSION: No hemodynamically significance stenosis or occlusion. REFERENCES: NASCET CRITERIA. The degree of internal carotid artery stenosis is based on NASCET criteria. Normal is no stenosis. Mild is less than 50% stenosis. Moderate is 50-69% stenosis. Severe is 70% to 99% stenosis. Total occlusion is no detectable patent lumen. Radiation Dose CTDIVOL = (mGy): DLP = 2306.46~2306.46 (mGy-cm)
--- NOTE | 2021-06-08 17:01 | XRR_ITS ---
PROCEDURE INFORMATION: Exam: XR Chest Exam date and time: 06/08/2021 5:01 PM Age: 71 years old Clinical indication: Other: Stroke like symptoms; Additional info: Stroke like symptoms. Slurred speech, facial droop, gait disturbance TECHNIQUE: Imaging protocol: XR of the chest. Views: 1 view. Total images: 1 COMPARISON: CT angio abd aorta runof [id number] 04/12/2020 10:36 AM FINDINGS: Lungs: No visible active interstitial or alveolar airspace disease. Pleural spaces: Unremarkable. No pleural effusion. No pneumothorax. Heart/Mediastinum: Cardiac structures and configuration with status post sternotomy chest and CABG. Arteriosclerosis. Bones/joints: Unremarkable for age. XR/XR chest 1V portable [id number] IMPRESSION: Nonacute. Radiation Dose CTDIVOL = (mGy): DLP = (mGy-cm)
[2021-06-08 17:04] LABS: Glucose Point of Care 265 mg/dL (70-110)
[2021-06-08 17:39] LABS: Basophils % 0.5 %; Eosinophils # 0.2 10^3/uL (0.0-0.8); Eosinophils % 1.9 %; Hematocrit 44.7 % (42.0-52.0); Hemoglobin 14.9 g/dL (11.7-16.6); Lymphocytes # 1.4 10^3/uL (0.8-4.8); Mean Corpuscular HGB Conc 33.3 g/dL (30.0-36.0); Mean Corpuscular Hemoglobin 29.2 pg (28.0-34.0); Mean Corpuscular Volume 87.5 fl (80-94); Mean Platelet Volume 11.8 fL (7.4-10.4); Monocytes # 0.6 10^3/uL (0.2-0.9); Monocytes % 6.5 %; Neutrophils # 6.27 10^3/uL (1.8-7.7); Neutrophils % 73.7 %; Nucleated Red Blood Cells % 0 %; Platelet Count 246 10^3/cmm (130-400); Red Blood Count 5.11 10^6/uL (4.1-5.3); Red Cell Distribution Width 13.4 % (12.1-15.1); White Blood Count 8.5 10^3/uL (4.0-10.0)
[2021-06-08] MEDS: iodixanol 320 mg/mL 100mL Btl IV (17:39)
[2021-06-08 17:56] LABS: INR 0.97 (0.8-1.2)
[2021-06-08 17:58] LABS: Partial Thromboplastin Time 27.7 SECONDS (23.9-36.7)
[2021-06-08 18:14] LABS: Alanine Aminotransferase 15 U/L (0-41); Albumin Level 3.9 g/dL (3.5-5.2); Alkaline Phosphatase 60 IU/L (40-130); Anion Gap 14.4 (5-19); Aspartate Amino Transferase 14 U/L (0-40); Blood Urea Nitrogen 15 mg/dL (8-23); Calcium 8.9 mg/dL (8.5-10.5); Carbon Dioxide 24 mmol/L (22-29); Chloride 101 mmol/L (98-107); Globulin 2.9 g/dL (1.3-4.6); Glucose 268 mg/dL (65-115); Osmolality Calculated 290 mOsm/kg (285-295); Potassium 4.4 mmol/L (3.5-5.1); Sodium 135 mmol/L (136-145); Thyroid Stimulating Hormone 1.05 uIU/mL (0.27-4.20); Total Bilirubin 0.6 mg/dL (0.15-1.2); Total Protein 6.8 g/dL (6.6-8.7)
[2021-06-08 18:43] LABS: Urine Appearance Clear (CLEAR); Urine Color Yellow (Yellow)
[2021-06-08 18:45] LABS: Bilirubin Urine Neg (Negative); Blood Urine Neg (Negative); Glucose Urine UA 4+ (Normal); Ketones Urine Negative (Negative); Nitrate Urine Negative (Negative); Protein Urine 1+ (Negative); pH Urine 5 (5-7)
[2021-06-08 18:46] LABS: Add Urine Culture? No; Add Urine Microscopic? YES; Bacteria Urine TRACE /hpf; Leukocyte Esterase Urine Negative (Negative); Squamous Epithelial Cell Urine 0-4 /hpf (0-5); Urobilinogen Urine 1 mg/dL (Negative)
[2021-06-08 19:34] VITALS: BP 140/98; PULSE 70; RESP 18; O2SAT 99
== END 2021-06-08 21:10 | disposition left against medical advice (07) ==
PROVIDERS: Emergency Provider Emergency Medicine; PCP Family Medicine
DX: I67.2 Cerebral atherosclerosis (principal); I73.9 Peripheral vascular disease, unspecified; E11.9 Type 2 diabetes mellitus without complications; I10 Essential (primary) hypertension; E78.5 Hyperlipidemia, unspecified; Z95.1 Presence of aortocoronary bypass graft; Z53.29 Procedure and treatment not carried out because of patient's decision for other reasons; Z79.4 Long term (current) use of insulin; Z79.84 Long term (current) use of oral hypoglycemic drugs; Z87.891 Personal history of nicotine dependence
CPT/HCPCS: 36416; 70450; 70496; 70498; 71045; 80053; 81001; 82962; 84443; 85025; 85610; 85730; 99283; Q9967

== ENCOUNTER → 2022-03-06 13:52 | Outpatient (BNVA) | payer OTHER, SELFPAY | PROVIDERS: PCP Family Medicine; Visit Provider Internal Medicine | DX: I10 Essential (primary) hypertension (principal); Z95.1 Presence of aortocoronary bypass graft; I73.9 Peripheral vascular disease, unspecified; R60.9 Edema, unspecified; Z87.891 Personal history of nicotine dependence | CPT/HCPCS: 99214 ==

== ENCOUNTER 2022-03-29 12:15 | Outpatient (CLI) | payer OTHER, SELFPAY ==
--- NOTE | 2022-03-29 12:45 | USCV_ITS ---
Yoni Ravinder Age: 71 Gender: M : 1950 Exam Date: 03/29/2022 12:34 Ordering Phys: Davey Torres M.D ([email or web address]) Technologist: ISSA Exam Location: [facility] – [place] Indication: CLAUDICATION Risk Factors: Previous Vascular Surgery: RIGHT LEFT BP: 126.0 / 59.00 BP: 137.0/ 55.00 0 0 Waveform Velocity (cm/s) Velocity (cm/s) Waveform Biphasic 166.2 Iliac Prox 153.8 Biphasic Biphasic 160.0 Iliac Mid 134.1 Biphasic Biphasic 150.7 Iliac Distal 153.8 Biphasic Biphasic 138.3 JIGSAW OPERATOR 163.0 Biphasic Biphasic 105.6 SFA Prox 291.8 Biphasic Biphasic 60.7 SFA Mid 114.4 Biphasic Biphasic 74.3 SFA Dist 94.7 Biphasic Biphasic 219.2 POP 117.0 Biphasic Biphasic 50.4 LICENSED PHYSICAL THERAPIST ASSISTANT 75.0 Biphasic Biphasic 11.5 DPA 101.4 Biphasic 0.6 LUIS 0.8 FINDINGS popliteal arteries bilaterally. Resting LUIS 0.6 on the right and 0.8 on the left side CONCLUSIONS 1. Abnormal resting LUIS with features suggestive of moderate to severe peripheral artery disease on the right side. 2. Abnormal resting LUIS with features suggestive of moderate peripheral arterial disease on the left side Dr Orestes Casey MD [facility] (Electronically Signed) Final Date: 31 March 2022 18:20 S
== END 2022-03-29 12:16 | disposition home or self-care (01) ==
LOC: RAD 12:16
PROVIDERS: PCP Family Medicine; Visit Provider Internal Medicine
DX: M79.604 Pain in right leg (principal); M79.605 Pain in left leg; I73.9 Peripheral vascular disease, unspecified
CPT/HCPCS: 93925

== ENCOUNTER → 2022-04-08 12:27 | Outpatient (BNVA) | payer OTHER, SELFPAY | PROVIDERS: PCP Family Medicine; Visit Provider Internal Medicine | DX: I73.9 Peripheral vascular disease, unspecified (principal); I10 Essential (primary) hypertension; R58 Hemorrhage, not elsewhere classified; Z95.1 Presence of aortocoronary bypass graft; Z87.891 Personal history of nicotine dependence | CPT/HCPCS: 99214 ==

== ENCOUNTER 2022-05-02 06:11 | Outpatient (CLI) | payer OTHER, SELFPAY ==
[2022-05-02] VITALS (27 sets, daily range): BP systolic 111–164; BP diastolic 51–73; PULSE 47–75; RESP 12–18; TEMP 36.5–36.6; O2SAT 91–99; BMI 31.4
--- NOTE | 2022-05-02 06:00 | XACV_ITS ---
Wt: 97 kg BSA: 2.20 m2 Any Known Allergies: Other Gender: Male : 1950 Exam Type: Invasive Peripheral Vascular Procedure(s): Procedure Description: Peripheral Cath Diagnostic Procedure Procedure Description: Abdominal aortic angiography Procedure Description: Lower extremities' angiography Procedure Description: Peripheral vascular Intervention Procedure Description: PV Balloon Exam Priority: Routine Abdominal Diagnostic Findings Distal abdominal aorta: Patent. Lower Extremity Diagnostic Findings INDICATION: 71-year-old man with past medical history of coronary artery disease status post CABG several years back, hypertension, peripheral artery disease status post revascularization of left SFA in 2020) having severe lifestyle limiting claudication bilaterally. LUIS was significantly low on the right lower extremity and was found to be 0.6. LUIS on the left lower extremity 0.8. Right lower extremity findings: Right common iliac artery: Has mild 10 to 20% stenosis Right external iliac artery: Patent Right internal iliac artery: Patent Right common femoral artery: Patent Right profunda artery: Patent Right SFA: Has diffuse mild to moderate disease. No severe stenosis. Right popliteal artery: Has mild to moderate luminal irregularities. Distal popliteal artery has severe 80% stenosis Right anterior tibial artery: Totally occluded proximally. TP segment: Has severe 70% stenosis Right peroneal artery: Patent Right posterior tibial artery: Patent however proximally has diffuse disease. Left lower extremity findings: Left common iliac artery: Has mild 10 to 20% stenosis. Left external iliac artery: Patent Left internal iliac artery: Patent Left common femoral artery: Patent Left profunda: Patent with Left SFA: Has ostial 30 to 40% stenosis. Otherwise no significant disease. Left popliteal artery: Patent Left anterior tibial artery: Occluded Left TP segment: Patent Left peroneal artery: Patent Left posterior tibial artery: Patent . Right Distal Popliteal Artery: 70% stenosis. Right Mid-longitudinal Tibioperoneal Trunk: 70% stenosis. Lower Extremity Interventional Findings Right Distal Popliteal Artery: 80% stenosis treated with AB ARMADA 14 OTW [id number]. After obtaining diagnostic images, we switched short sheath from left common femoral artery to a long sheath. Using command wire we crossed into distal right peroneal artery. We performed balloon angioplasty of distal popliteal artery with 3.0 x 40 mm balloon. Same balloon was used to perform balloon angioplasty of TP trunk. At this time final angiogram was performed that showed significant improvement in the blood flow. At this time long sheath and wire was removed and short sheath was introduced. 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 Right Mid-longitudinal Tibioperoneal Trunk: 70% stenosis treated with AB ARMADA 14 OTW [id number]. Conclusions Severe stenosis of the distal right popliteal artery and right TP trunk status post successful revascularization with balloon angioplasty. Right Distal Popliteal Artery was treated with Balloon. Right Mid-longitudinal Tibioperoneal Trunk was treated with Balloon. Recommendations Continue aspirin and high intensity statin therapy. We may start Plavix for 3-month. Outpatient cardiology follow-up in 2 to 4 weeks. Hemodynamic Data Phase:Rest AO : / ( 64.0 ) @ 8:24:00 AM 246.0 / 102.0 ( 145.0 ) @ 8:52:00 AM 188.0 / 106.0 ( 135.0 ) @ 8:55:00 AM Access Site Site: Left Femoral artery Sheath Size: 6 Fr Hemost... Method: Suture Hemost... Success: Successful Procedure Details Findings Procedure Consent Obtained. Admit Source: Out Patient. Pre-Procedure Time Out. Identified patient by full name and date of as verbalized by the patient/guarantor. Does the consent match the physician's order: Yes. Accurate & Complete Informed Consent: Yes. Inpatient/Outpatient History & Physical on Chart: Yes. If H&P is completed, is and addenduem needed: No; If yes, is the addendum complete: N/A. Visualize and Verify Site with Patient/Guarantor: N/A. Relevant Radiology Images available: N/A. The risks, benefits, and alternatives of sedation and/or procedure were discussed by physician. The patient agrees to continue. Current diagnosis: Severe Lifestyle Limiting Claudication. Procedure started. Correct patient, site and procedure confirmed by cath team. PERRLA. 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 Lungs clear x 5 lobes. IV Site on Arrival: 20 gauge in the left anticubital. IV Fluids: 0.9% NaCl at KVO. 0 mL infused prior to clinical laboratory technician. Pre Procedural Pulses: bilateral radial was 3+. Pre Procedural Pulses: bilateral dorsalis pedis was Doppled. Pre Procedural Pulses: bilateral posterior tibial was Doppled. Oxygen started at 3liters/min via nasal canula. bilateral groins was prepped with chloroprep then draped in the usual sterile fashion. Physician notified. Baseline sample Acquired. HR: 58 BPM. Baseline sample Acquired. HR: 60 BPM. Patient's family unavailable. Equipment: 6F - Femoral. Cardiac Cath Pack. ACIST Manifold Kit Model BT 2000. Heparinized Saline (2 units/mL), 1000 mL bag. Kit, Micropuncture. Physician arrived. Physician scrubbed in. Immediate Pre-Procedure Time Out. Correct Patient: Yes; Correct Procedure: Yes; Correct Site: Yes; Correct Patient Position: Yes; Correct Supplies: Yes; Dried Flammable Prep: Yes; Blood Products Available: N/A;. Lidocaine 1% infiltrated to the left groin. Arterial access obtained with micropuncture set. A 5FrFr UF catheter in over wire. Pigtail postioned above the bifurcation of the iliacs. Aortagram performed @ 10 mL/sec for a total of 30 mL. Glidewire inserted through the UF and advanced down the right SFA. UF catheter removed. Sheath upsized to a 6 Fr. Right external iliac selected and arteriogram with runoff performed @ 10 mL/sec for a total of 30 mL. Seeker catheter inserted over the wire. Paterson wire removed. Hand injection using DSA of the right popliteal artery. Flexor sheath to KVO to maintain patency. 300 cm command wire inserted through the Seeker catheter and advanced to the right popliteal. Command advanced across the popliteal and tibial peroneal trunk. Seeker catheter out. Inflation number : 1 A AB ARMADA 14 OTW [id number] was prepped and advanced across the Distal Popliteal, Right , then inflated to 8 RUDI for 0:47 seconds. Inflation number: 1 The AB ARMADA 14 OTW [id number] was reinflated across the Tibial Peroneal Trunk, Right, to 6 RUDI for 0:47 seconds. Balloon out over the wire. Support catheter positioned in the popliteal to better visualize the distal vessels. Right external iliac selected and arteriogram with runoff performed using digital subtraction @ 10 mL/sec for a total of 30 mL. Command wire out. Standard wire inserted. Sheath upsized to a 6 Fr. Standard wire out. Left common femoral selected and arteriogram with runoff performed @ 10 mL/sec for a total of 30 mL. Physician review of films. Hand injection through the left femoral sheath of the left common femoral using digital subtraction. Physician review of films. Physician scrubbed out. A Suture was successful obtaining hemostatsis at the Left Femoral artery insertion site. Sheath(s) sutured into position with 2-0 silk and sterile 4x4's and Op-site applied over the site. No oozing or signs and symptoms of hematoma noted. Arterial sheath flushed and connected to tranducer and pressure bag with heparinized saline. Post Procedure: Pulses reassessed and unchanged. PERRLA. 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 No VTE prophylaxis required. Medication waste: Heparin 4000 units; fentanyl 50 mcg; Hydralazine 10 mg. Total IV fluids: 50 mL. Fluoro: 4:01. Contrast type used: Visipaque 320 mgI/mL, 100 mL bottle. [id number]. Post-op diagnosis: Severe right distal popliteal and tibial peroneal trunk stenosis; status post balloon angioplasty. Complications: None. Estimated blood loss: 5mL-10mL. Responsiveness - Normal response to verbal stimuli; alert and oriented, PERRLA. Airway - Unaffected, no intervention required; spontaneous ventilation. Circulation: W/N/L, pulses unchanged. Nausea/Vomiting: No. Procedure completed. Patient transferred by bed to ICU. Vital chart was stopped. Procedure Medications Start: 7:24 AM Stop: 7:24 AM Medication: Benadryl Amount: 50 mg Route: I.V. Start: 7:26 AM Stop: 7:26 AM Medication: Versed Amount: 1 mg Route: I.V. Start: 7:26 AM Stop: 7:26 AM Medication: Fentanyl Amount: 50 mcg Route: I.V. Start: 7:33 AM Stop: 7:33 AM Medication: Versed Amount: 1 mg Route: I.V. Start: 7:48 AM Stop: 7:48 AM Medication: Heparin Amount: 5000 units Route: I.V. Start: 7:50 AM Stop: 7:50 AM Medication: Hydralazine Amount: 10 mg Route: I.V. I, the attending physician, have reviewed and verified all procedure medications. Yes, all medications given per verbal order History/Risk Factors Hypertension: Yes Dyslipidemia: Yes Peripheral Arterial Disease (PAD): Yes Obesity: Yes Renal Disease: No Tobacco Use: Former Prior Interventions PCI: No CABG: Yes Valve Surgery: No Report Signatures Finalized by Davey Torres MD on 05/12/2022 09:56 PM
[2022-05-02 06:40] LABS: Basophils # 0.1 10^3/uL (0.0-0.1); Basophils % 0.6 %; Eosinophils # 0.3 10^3/uL (0.0-0.8); Eosinophils % 3.3 %; Hematocrit 44.8 % (42.0-52.0); Hemoglobin 14.8 g/dL (11.7-16.6); Lymphocytes # 2.3 10^3/uL (0.8-4.8); Lymphocytes % 27.1 %; Mean Corpuscular Hemoglobin 28.9 pg (28.0-34.0); Mean Corpuscular Volume 87.5 fl (80-94); Mean Platelet Volume 11.8 fL (7.4-10.4); Monocytes # 0.9 10^3/uL (0.2-0.9); Monocytes % 10.6 %; Neutrophils # 4.85 10^3/uL (1.8-7.7); Neutrophils % 57.9 %; Nucleated Red Blood Cells % 0 %; Platelet Count 227 10^3/cmm (130-400); Red Blood Count 5.12 10^6/uL (4.1-5.3); Red Cell Distribution Width 12.8 % (12.1-15.1); White Blood Count 8.4 10^3/uL (4.0-10.0)
[2022-05-02 06:56] LABS: INR 0.97 (0.8-1.2)
[2022-05-02 06:57] LABS: Anion Gap 12.9 (5-19); Blood Urea Nitrogen 17 mg/dL (8-23); Calcium 9.3 mg/dL (8.5-10.5); Carbon Dioxide 26 mmol/L (22-29); Chloride 103 mmol/L (98-107); Glucose 82 mg/dL (65-115); Osmolality Calculated 287 mOsm/kg (285-295); Potassium 3.9 mmol/L (3.5-5.1); Sodium 138 mmol/L (136-145)
--- NOTE | 2022-05-02 07:31 | W.PM.OPSUD ---
Surgery/Procedure H&P Update DATE OF PROCEDURE: May 02, 2022 DATE H&P PERFORMED: 04/08/22 H&P UPDATE INFORMATION: I have reviewed H&P completed within last 30 days, I have examined patient prior to procedure and No changes to prior documentation PREOP DIAGNOSIS: Severe Lifestyle limiting claudication/abnormal LUIS bilaterally PRIMARY INDICATION FOR PROCEDURE: Severe Lifestyle limiting claudication/abnormal LUIS bilaterally PLANNED PROCEDURE: Operation Date: 05/02/22 07:00 Proposed Procedures p Peripheral Diagnostic Angiogram 51133,I73.9(Not Applicable) - Davey Torres M.D Possible percutaneous intervention PATIENT REASSESSED PRIOR TO SEDATION, WITH NO CHANGE NOTED: Yes PHYSICAL EXAM: alert, oriented x 3, clear to auscultation bilaterally and regular rate & rhythm AIRWAY EVAL/ANESTHESIA PLAN: ASA III, Local Anesthesia, Risks, benefits & alternatives of sedation and/or procedure discussed and Patient agrees to continue as planned ADDITIONAL INFORMATION: Moderate sedation
[2022-05-02] MEDS: sodium chloride 0.9% 1,000 ML 100 ML IV (12:30)
--- NOTE | 2022-05-02 16:18 | PC.NURSE ---
1245 Obtained order to remove sheath from Dr. Torres. No PTT needed before sheath pull. 1320 Sheath pulled, line intact, no blood clots observed, manual pressure held for 15 minutes. Hemostasis achieved. Clear dressing applied. No hematoma. Distal pulses intact.
--- NOTE | 2022-05-02 18:20 | PM.DCS ---
Discharge Providers Date of Admission: 05/02/22 08:33 Date of Discharge: May 02, 2022 Attending Provider at Admission: Davey Torres M.D Attending Provider at Discharge: Davey Torres M.D Primary Care Provider: Cheryle Santos MD Reason for Visit Reason for Visit: I73.9 Brief History: 71-year-old man with past medical history of coronary artery disease status post CABG several years back, hypertension, peripheral artery disease status post revascularization of left SFA in 2020) having severe lifestyle limiting claudication bilaterally. LUIS was significantly low on the right lower extremity and was found to be 0.6. LUIS on the left lower extremity 0.8. Hospital Course Hospital Course Peripheral angiogram was performed that showed severe distal popliteal and TP segment stenosis. He underwent successful revascularization with balloon angioplasty of distal popliteal artery and TP trunk. It improved the flow significantly. Anterior tibial artery is occluded on the right side. Posterior tibial artery has diffuse disease. Peroneal artery has good flow to the foot. Patient did not want to stay in the hospital overnight. He was watched postprocedure for several hours. Access site was normal. He was discharged home in a stable condition. Physical Exam Narrative: GENERAL: Patient is alert, awake and oriented x3. [] NECK: No jugular vein distension. [] HEENT: No cyanosis. No icterus. No pallor. [] HEART: Regular S1 and S2. No murmur, rub or gallop. [] LUNGS: Clear to auscultate bilaterally. [] ABDOMEN: Soft, nontender and nondistended. Positive bowel sounds. No guarding, rebound or tenderness. [] CENTRAL NERVOUS SYSTEM: Grossly nonfocal. [] EXTREMITIES: Lower extremities with no edema bilaterally. Pulses palpable in the lower extremities, both dorsalis pedis and posterior tibial. [] Discharge Data Studies Completed and Pending Pending at discharge Category Date Time Status PEDIATRIC OCCUPATIONAL THERAPIST request for service Routine Exams 05/02/22 06:00 Taken Laboratory Results WBC 8.4 10^3/uL (4.0-10.0) 05/02/22 06:30 RBC 5.12 10^6/uL (4.1-5.3) 05/02/22 06:30 Hgb 14.8 g/dL (11.7-16.6) 05/02/22 06:30 Hct 44.8 % (42.0-52.0) 05/02/22 06:30 MCV 87.5 fl (80-94) 05/02/22 06:30 MCH 28.9 pg (28.0-34.0) 05/02/22 06:30 MCHC 33.0 g/dL (30.0-36.0) 05/02/22 06:30 RDW 12.8 % (12.1-15.1) 05/02/22 06:30 Plt Count 227 10^3/cmm (130-400) 05/02/22 06:30 MPV 11.8 fL (7.4-10.4) H 05/02/22 06:30 Neut % (Auto) 57.9 % 05/02/22 06:30 Lymph % (Auto) 27.1 % 05/02/22 06:30 Pershing % (Auto) 10.6 % 05/02/22 06:30 Eos % (Auto) 3.3 % 05/02/22 06:30 Baso % (Auto) 0.6 % 05/02/22 06:30 Neut # (Auto) 4.85 10^3/uL (1.8-7.7) 05/02/22 06:30 Lymph # (Auto) 2.3 10^3/uL (0.8-4.8) 05/02/22 06:30 Pershing # (Auto) 0.9 10^3/uL (0.2-0.9) 05/02/22 06:30 Eos # (Auto) 0.3 10^3/uL (0.0-0.8) 05/02/22 06:30 Baso # (Auto) 0.1 10^3/uL (0.0-0.1) 05/02/22 06:30 Nucleated RBC % (auto) 0 % 05/02/22 06:30 Nucleated RBCs # 0.0 /100WBC 05/02/22 06:30 PT 13.20 SECONDS (12.1-14.9) 05/02/22 06:30 INR 0.97 (0.8-1.2) 05/02/22 06:30 Sodium 138 mmol/L (136-145) 05/02/22 06:30 Potassium 3.9 mmol/L (3.5-5.1) 05/02/22 06:30 Chloride 103 mmol/L (98-107) 05/02/22 06:30 Carbon Dioxide 26 mmol/L (22-29) 05/02/22 06:30 Anion Gap 12.9 (5-19) 05/02/22 06:30 BUN 17 mg/dL (8-23) 05/02/22 06:30 Creatinine 1.0 mg/dL (0.7-1.2) 05/02/22 06:30 GFR Calculation Not Reportable 05/02/22 06:30 Glucose 82 mg/dL (65-115) 05/02/22 06:30 Calculated Osmolality 287 mOsm/kg (285-295) 05/02/22 06:30 Calcium 9.3 mg/dL (8.5-10.5) 05/02/22 06:30 Vitals Last Vital Signs Temp 97.9 F 05/02/22 06:20 Pulse 59 L 05/02/22 14:45 Resp 16 05/02/22 14:45 BP 118/51 05/02/22 14:45 Pulse Ox 93 05/02/22 14:45 O2 Del Method 05/02/22 08:50 Discharge Plan Discharge Patient Disposition: Home Prescriptions: Continued amlodipine 10 mg tablet 10 mg PO DAILY Qty: 90 3RF losartan 100 mg tablet 100 mg PO DAILY Qty: 90 3RF aspirin 81 mg tablet,delayed release (DR/EC) 81 mg PO DAILY Qty: 90 3RF rosuvastatin 20 mg tablet 20 mg PO DAILY Qty: 90 3RF glimepiride 4 mg tablet 4 mg PO DAILY insulin glargine 100 unit/mL solution 96 unit SUBCUT DAILY No Action furosemide [Lasix] 20 mg tablet 20 mg PO DAILY Qty: 90 0RF Hold Instructions: Resume on 05/03/22. Discharge Orders: Discharge Order (Routine); Ordered 05/02/22 Ordered By: Davey Torres Referrals: Davey Torres M.D [Physician] - 2 months Marii Patel FNP [Nurse Practitioner] - 4-7 days (please call for this appointment ,due to office being closed at this time of discharge. ) Diet: Diabetic Activity: Increase activity as tolerated Patient Instructions: Peripheral Vascular Angioplasty (DC), Opioid Safety, Post Angiogram Home Care Instructions Discharge Date/Time: 05/02/22 21:10 Discharge Attestations Time Spent in Discharge Care*: greater than 30 min Quality Metrics Clinical Quality Measures [ No reported AMI, CVA or VTE this stay] Coding Level of Care Code Acute Chg FW DC note
--- NOTE | 2022-05-02 20:29 | PC.NURSE ---
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
--- NOTE | 2022-05-02 21:23 | PC.NURSE ---
2109 patient ambulated to friend's personal vehicle; tolerated well
== END 2022-05-02 21:10 | disposition home or self-care (01) ==
LOC: CCL 06:16 → ICU 18:20
PROVIDERS: PCP Family Medicine; Visit Provider Internal Medicine
DX: I73.9 Peripheral vascular disease, unspecified (principal); I70.92 Chronic total occlusion of artery of the extremities; Z95.1 Presence of aortocoronary bypass graft; I10 Essential (primary) hypertension; Z79.82 Long term (current) use of aspirin; E11.9 Type 2 diabetes mellitus without complications; E78.5 Hyperlipidemia, unspecified; Z82.49 Family history of ischemic heart disease and other diseases of the circulatory system; Z87.891 Personal history of nicotine dependence
CPT/HCPCS: 36415; 37228; 75625; 75716; 80048; 85025; 85610; 96360; 99152; 99153; C1725; C1769; C1887; C1894; G0378; J0360; J1200; J1644; J2250; J3010; J7030; Q9967

== ENCOUNTER → 2022-05-08 15:38 | Outpatient (BNVA) | payer OTHER, SELFPAY | PROVIDERS: PCP Family Medicine; Visit Provider Nurse Practitioner Family | DX: I73.9 Peripheral vascular disease, unspecified (principal); Z87.891 Personal history of nicotine dependence | CPT/HCPCS: 80048; 99214 ==

== ENCOUNTER → 2022-09-23 13:01 | Outpatient (BNVA) | payer OTHER, SELFPAY | PROVIDERS: PCP Family Medicine; Visit Provider Internal Medicine | DX: I10 Essential (primary) hypertension (principal); Z95.1 Presence of aortocoronary bypass graft; I73.9 Peripheral vascular disease, unspecified; Z87.891 Personal history of nicotine dependence | CPT/HCPCS: 99214 ==

== ENCOUNTER 2025-08-07 11:22 | Emergency (ER) | payer OTHER, SELFPAY ==
--- OUTSIDE RECORDS SUMMARY | 2025-08-07 11:31 | XMS_ITS | Clinical Summary ---
Author Organization [facility] Address [address] [facility] Attn: Epic Prelude ADT [place] [address] Care Team Providers Care Brim Molder Name Role Phone Carla Corea Primary Care Provider Allergies Active Allergy Reactions Criticality Noted Date Comments Gabapentin Dizziness Low 05/14/2018 Lisinopril Cough Low 07/11/2016 [place] Delirium Medium 05/14/2018 Olanzapine Unknown 09/02/2002 Quetiapine Fumarate Unknown 09/02/2002 Medications insulin glargine (LANTUS) 100 unit/mL pen syringe Inject 25 Units by subcutaneous injection daily at bedtime. 6 Active aspirin (ECOTRIN EC) 81 mg Tablet, Delayed Release (E.C.) Take 1 Tablet (81 mg) by mouth daily. 50 Tablet 3 Active glimepiride (AMARYL) 4 mg tablet Take 4 mg by mouth daily with breakfast. Active metFORMIN (GLUCOPHAGE) 500 mg tablet Take 500 mg by mouth 2 times daily with meals. Active amLODIPine (NORVASC) 10 mg tablet Take 10 mg by mouth daily. Active furosemide (LASIX) 20 mg tablet Take 10 mg by mouth daily. Active rosuvastatin (CRESTOR) 5 mg tablet Take 5 mg by mouth daily. Active empagliflozin (JARDIANCE) 25 mg tablet Take 25 mg by mouth daily in the morning. Active pioglitazone (ACTOS) 30 mg tablet Take 30 mg by mouth daily with breakfast. Active semaglutide (Ozempic) 0.25 mg or 0.5 mg(2 mg/1.5 mL) Pen Injector Inject 0.5 mg by subcutaneous injection every 7 days. Active clopidogreL (Plavix) 75 mg Tablet Take 1 Tablet (75 mg) by mouth daily. 30 Tablet 02/22/2025 12:29 PM CDT Active Active Problems Problem Noted Date Diagnosed Date Dehydration 03/01/2025 Ulcer of great toe, right, with fat layer expose d 02/19/2025 Moderate protein-calorie malnutrition 02/17/2025 Acute hematogenous osteomyelitis of right foot 0 02/17/2025 Peripheral vascular disease 02/16/2025 Chronic wound of right great toe 02/16/2025 Unintentional weight loss 02/16/2025 PAD (peripheral artery disease) 02/16/2025 Hyperlipidemia 07/03/2024 Overview (07/03/2024): Jul 23, 2010 Entered By: DANIELLE CRESPO Comment: not on medications currently. Atherosclerosis of coronary artery bypass graft 07/03/2024 Bipolar I disorder 07/03/2024 Overview (07/03/2024): Jul 23, 2010 Entered By: DANIELLE CRESPO Comment: Diagnosed remotely, d/c lithium Peripheral arterial occlusive disease 07/03/2024 Overview (07/03/2024): Oct 18, 2022 Entered By: KEYA GAYTAN Comment: vascular dr Nov 04, 2023 Entered By: KEYA GAYTAN Comment: angioplasty PTSD (post-traumatic stress disorder) 07/03/2024 Type 2 diabetes mellitus wit h diabetic neuropathy, unspecified 07/03/2024 Diabetes mellitus type 2 with complications 04/12 Essential hypertension 05/02/2023 Encounters Date Type Department Care Team Description 08/02/2025 External Device Data [facility] ABSTRACTION Provider, Abstract 07/26/2025 External Device Data [facility] ABSTRACTION Provider, Abstract 07/20/[address] [facility] Medicine [place] [address] [place] [facility] [place] [address] Carla Corea, DO Type 2 diabetes mellitus with diabetic neuropathy, with long-term current use of insulin ([facility]) 07/12/2025 External Device Data ST[facility] ABSTRACTION Provider, Abstract 07/01/2025 Telephone [facility] [address] [place] [phone] Carla Corea, DO inappropriate behavior 06/28/2025 External Device Data STL ABSTRACTION Provider, Abstract 06/08/2025 Orders Only [facility] [address] [place] [phone] aCrla Corea, DO Type 2 diabetes mellitus with diabetic neuropathy, with long-term current use of insulin 05/12/2025 11:00 AM CDT Office Visit [facility] Podiatry-Octavio Camarenann Banks [address] [place] [address] See Colin DPM History of amputation of right great toe (Primary Dx) 05/10/2025 External Device Data STL ABSTRACTION Provider, Abstract from Last 3 Months Family History Medical History Relation Name Comments Unknown Mother Relation Name Status Comments Father Maternal Grandfather Maternal Grandmother Mother Paternal Grandfather Paternal Grandmother Social History Tobacco Use Types Packs/Day Years Used Date Smoking Tobacco: Former Cigarettes 2 Q uit: 08/11/1989 Passive Smoke Exposure: Past Smokeless Tobacco: Former Quit: 08/11/1994 Tobacco Cessation:Counseling Given: No Alcohol Use Standard Drinks/Week Comments Not Currently 56 (1 standard drink = 0.6 oz pu re alcohol) Feeling Safe Answer Date Recorded Are you in a relationship wi th someone who hurts you emotionally and/or physically? No 02/16/2025 Food Insecurity Answer Date Recorded Patient needs follow up regardin 02/16/2025 Transportation Needs Answer Date Record ed Patient needs follow up regardin 02/16/2025 Housing Stability Answer Date Recorded Social/Environmental Concerns No concerns Utility Needs Answer Date Recorded Patient needs follow up regardin 02/16/2025 Sex and Gender Information Value Date Recorded Sex Assigned at Male 07/02/2024 8:52 AM ENCYCLOPEDIA RESEARCH WORKER Legal Sex Male 12:35 AM ENCYCLOPEDIA RESEARCH WORKER Gender Identity Male 07/02/2024 8:52 AM ENCYCLOPEDIA RESEARCH WORKER Sexual Orientation Straight 07/02/2024 8: 52 AM ENCYCLOPEDIA RESEARCH WORKER Last Filed Vital Signs Vital Sign Reading Time Taken Comments Blood Pressure 120/60 05/12/2025 10:59 AM CDT Pulse 60 05/12/2025 10:59 AM CDT Temperature 36.4 C (97.6 F) 03/31/2025 9:17 AM CDT Respiratory Rate 18 03/31/2025 9:17 AM CDT Oxygen Saturation 99% 05/12/2025 10:59 AM CDT Inhaled Oxygen Concentration - - Weight 77.6 kg (171 lb) 05/12/2025 10:59 AM CDT Height 175.3 cm (5' 9 ) 05/12/2025 10:59 AM CDT Body Mass Index 25.25 05/12/2025 10:59 AM CDT Plan of Treatment Upcoming Encounters Date Type Department Care Team (Late st Contact Info) Description 10/12/2025 8:30 AM ENCYCLOPEDIA RESEARCH WORKER Ancillary Procedure [facility] V[facility] Lab and [facility]- [address] [address] Luther Dill MD [address] [place] [phone] 10/12/2025 9:00 AM ENCYCLOPEDIA RESEARCH WORKER Office Visit [facility] Vascular Surgery [address] [address] Luther Dill MD [address] [place] [phone] Health Maintenance Due Date Last Done Comments DIABETES ANNUAL FOOT EXAM 1966 DIABETES MICROALBUMIN ANNUAL SCREEN 1966 DTAP/TDAP/TD VACCINES (1 - Tdap) 1967 PNEUMOCOCCAL VACCINE 50+ YEA RS (1 of 2 - PCV) 1967 ZOSTER VACCINE (1 of 2) 1998 RSV VACCINE (60+ or ) (1 - 1-dose 75+ series) 2023 VICTORIA uA (Auto Order) 08/11/2024 Preventative Visit- Commercial 08/11/2024 INFLUENZA VACCINE (#1) 2025 DIABETES ANNUAL RETINAL EXAM 04/15/2025 04/15/2024 DIABETES: A1C (Auto Order) 05/05/202502/02, 01/28/2025, 07/30/2024 DIABETES HBA1C Q 6 MONTHS 08/04/20252024, 01/28/2025, 07/30/2024 LDL CHOLESTEROL ANNUAL 02/17/2026 02/17/2025, 2024 KHE eGFR (Auto Order) Completed 03/31/2025 , 02/28/2025, 02/20/2025, Additional history exists Medical Devices Implanted Type Area Lens Assorter Device Identifier Shelf Expiration Date Model / Serial / Lot Dev Closure Angioseal 6fr [facility] [id number] - [id number] Implanted:Qty: 1 on 05/02/2023 by Tevin Hoyt MD at [facility] Closure Device Left: Cash [employer] [facility] 11/09/2023 [id number] / / [id number] Dev Closure Angioseal 6fr [facility] [id number] - [id number] Implanted:Qty: 1 on 02/17/2025 by Luther Dill MD at [facility] Closure Device Right: Cash [employer] CARDIOVASC SYS [id number] 06/04/2025 [id number] / / [id number] Lens Io Toric Sn6at6 27.0 Implanted:Qty: 1 on 07/18/2016 by Emanuel Cosme DO Eye Left: Eye [facility] 12/08/2020 SN6AT6 .270 / [id number] / Lens Io Toric Sn6at5 26.5 - [id number] Implanted:Qty: 1 on 08/08/2016 by Emanuel Cosme DO Eye Right: Eye [employer] 11/08/2020 SN6AT5 26.5 / [id number] / Procedures Procedure Name Priority Date/Time Associated Diagnosis Comments COMPREHENSIVE METABOLIC PANEL Routine 03/31/2025 9:57 AM CDT Dehydration LIPID PANEL Routine 02/17/2025 4:29 AM CDT HEMOGLOBIN A1C Routine 01/28/2025 1:42 PM CDT Diabetes mellitus type 2 with complications (CMS/HCC) HM DIABETES EYE EXAM Routine 04/15/2024 11:14 AM CDT from Last 3 Months or Most Recently Relevant to Health Maintenance Results * (ABNORMAL) COMPREHENSIVE METABOLIC PANEL (03/31/2025 9:57 AM CDT) GLUCOSE 329(H) 65 - 99 mg/dL [facility] Comment: Fasting reference interval For someone without known diabetes, a glucose value >125 mg/dL indicates that they may have diabetes and this should be confirmed with a follow-up test. BUN 53(H) 7 - 25 mg/dL [facility] CREATININE 1.17 0.70 - 1.28 mg/dL [facility] GFR 65 > OR = 60 mL/min/1.7 3m2 [facility] BUN/CREAT RATIO 45(H) 6 - 22 (calc) [facility] SODIUM 136 135 - 146 mmol/L [facility] POTASSIUM 5.1 3.5 - 5.3 mmol/L [facility] CHLORIDE 101 98 - 110 mmol/L [facility] CO2 27 20 - 32 mmol/L [facility] CALCIUM 8.9 8.6 - 10.3 mg/dL [facility] TOTAL PROTEIN 6.6 6.1 - 8.1 g/dL [facility] ALBUMIN 3.8 3.6 - 5.1 g/dL [facility] GLOBULIN 2.8 1.9 - 3.7 g/dL (calc) [facility] ALBUMIN/GLOBULIN RATIO 1.4 1.0 - 2.5 (calc) [facility] BILIRUBIN TOTAL 0.4 0.2 - 1.2 mg/dL [facility] ALKALINE PHOSPHATASE 70 35 - 144 U/L [facility] AST 21 10 - 35 U/L [facility] ALT 15 9 - 46 U/L [facility] Comment: FASTING:UNKNOWN FASTING: UNKNOWN Test Performed at: [facility] [address] [place] [address] Ovidio Marin MD Blood 03/31/2025 9:57 AM CDT 03/31/2025 9:58 AM CDT November BOOT AND SHOE REPAIRMAN CHEMISTRY ORDERABLES Final Resul t [facility] [phone] [facility] [address] [place] [address] * (ABNORMAL) LIPID PANEL (02/17/2025 4:29 AM CDT) CHOLESTEROL 201(H) <200 mg/dL 02/17/2025 5:15 AM CDT [facility] TRIGLYCERIDE 104 <150 mg/dL 02/17/2025 5:15 AM CDT [facility] HDL 37(L) 40 - 59 mg/dL 02/17/2025 5:15 AM CDT [facility] LDL CALCULATED 143(H) <100 mg/dL 02/17/2025 5:15 AM CDT [facility] NON-HDL CHOLESTEROL 164(H) <130 mg/dL 02/17/2025 5:15 AM CDT [facility] Blood Venipuncture / Unknown 02/17/2025 4:29 AM CDT 02/17/2025 4:37 AM CDT Narrative [facility] - 02/17/2025 5:15 AM CDT TOTAL CHOLESTEROL mg/dL Desirable <200 Borderline high 200-239 High >=240 TRIGLYCERIDES mg/dL Normal <150 Borderline high 150-199 High 200-499 Very high >=500 HDL CHOLESTEROL mg/dL Low <40 Normal 40-59 Desirable >=60 NON HDL CHOLESTEROL mg/dL Optimal <130 Near Optimal 130-159 Borderline High 160-189 Very High >=190 CALCULATED LDL mg/dL LDL <70, OPTIMAL if have Atherosclerotic cardiovascular disease (ASCVD) or intermediate or higher (>7.5%) 10 year risk of ASCVD including most adults with diabetes. LDL <100, Optimal in adult patients with low (<7.5%) 10 year ASCVD risk LDL 100-160, Suboptimal LDL >160, High LDL >190, Very high LDL calculated using the Friedewald equation. ATPIII Guidelines Reference Ranges for Lipid Panels (NCEP/AMA) . Cortney Slaughter MD CHEMISTRY ORDERABLES Final Result Performing Organization Address [facility] Co de Phone Number [facility] # [id number] [address] [place] [address] * (ABNORMAL) HEMOGLOBIN A1C (01/28/2025 1:42 PM CDT) Pathologist [facility] HEMOGLOBIN A1C 10.1(H) <5.7 % [facility] Comment: For someone without known diabetes, a hemoglobin A1c value of 6.5% or greater indicates that they may have diabetes and this should be confirmed with a follow-up test. For someone with known diabetes, a value <7% indicates that their diabetes is well controlled and a value greater than or equal to 7% indicates suboptimal control. A1c targets should be individualized based on duration of diabetes, age, comorbid conditions, and other considerations. Currently, no consensus exists regarding use of hemoglobin A1c for diagnosis of diabetes for children. ESTIMATED AVERAGE GLUCOSE (MG/DL) 243 mg/dL [facility] ESTIMATED AVERAGE GLUCOSE (MMOL/L) 13.5 mmol/L [facility] Comment: Test Performed at: [facility] [address] [place] [address] Ovidio Marin MD Blood 01/28/2025 1:42 PM CDT 01/29/2025 3:12 AM CDT November Lacy HESS CHEMISTRY ORDERABLES Final Resul t [facility] [phone] [facility] [address] [place] [address] * DIABETES EYE EXAM (04/15/2024 11:14 AM CDT) us Abstract Provider HEALTH MAINTENANCE Final Resul t from Last 3 Months or Most Recently Relevant to Health Maintenance Additional Health Concerns Infection Onset Date Last Indicated 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) 02/17/2025 02/17/2025 Insurance RX [facility] [employer] PPO MCR PR CCN [employer] * Guarantor: [employer] ([employer]) Account Type Relation to Patient Date of Phone Billing Address Corporate Other DEFAULT ADDRESS [address] [employer] * Guarantor: [facility] B ([facility] Account Type Relation to Patient Date of Phone Billing Address Corporate Other DEFAULT ADDRESS [address] [employer] Advance Directives For more information, please contact: [phone] * NO CPR (In Event of Cardiopulmonary Arrest) (Latest Code Status on File) Date Activated Date Inactivated Comments 02/16/2025 2:33 PM 02/22/2025 2:45 PM Question Answer Comments Mechanical Ventilation (for respiratory distress) - Invasive (i.e. intubation): No Mechanical Ventilation (for respiratory distress) - Non-Invasive (i.e. BiPAP, CPAP): Yes * Full Code Date Activated Date Inactivated Comments 02/16/2025 2:01 PM 02/16/2025 2:33 PM * Full Code Date Activated Date Inactivated Comments 05/03/2023 7:33 AM 05/03/2023 1:06 PM Care Teams Brim Molder Relationship Specialty Start Date End Date Carla Corea DO [address] [place] [address] PCP - General Family Practice 01/28/25
--- OUTSIDE RECORDS SUMMARY | 2025-08-07 11:31 | XMS_ITS | Encounter Summary ---
Author Organization [facility] Address [address] [place] [address] Care Team Providers Care Electrical Engineering Designer Name Role Phone Carla Corea Primary Care Provider Encounter Details Date Type Department Care Team (Late st Contact Info) Description 08/02/2025 External Device Data ST[facility] ABSTRACTION Provider, Abstract NO ADDRESS ON FILE Social History Tobacco Use Types Packs/Day Years Used Date Smoking Tobacco: Former Cigarettes 2 Q uit: 08/11/1989 Passive Smoke Exposure: Past Smokeless Tobacco: Former Quit: 08/11/1994 Alcohol Use Standard Drinks/Week Comments Not Currently [...] Sex Assigned at Male 07/02/2024 8:52 AM OPERATIONS PROFESSIONAL Legal Sex Male 12:35 AM OPERATIONS PROFESSIONAL Gender Identity Male 07/02/2024 8:52 AM OPERATIONS PROFESSIONAL Sexual Orientation Straight 07/02/2024 8: 52 AM OPERATIONS PROFESSIONAL documented as of this encounter Plan of Treatment Upcoming Encounters Date Type Department Care Team (Late st Contact Info) Description 10/12/2025 8:30 AM OPERATIONS PROFESSIONAL Ancillary Procedure [facility] V[facility]- [place] [address] [place] [address] Luther Dill MD [address] [place] [address] 10/12/2025 9:00 AM OPERATIONS PROFESSIONAL Office Visit [facility] Vascular Surgery [place] [id number] [place] [address] Luther Dill MD [address] [place] [address] documented as of this encounter Visit Diagnoses Not on filedocumented in this encounter Additional Health Concerns Infection Onset Date Last Indicated Resolved Time 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
[2025-08-07 11:40] VITALS: BP 127/66; PULSE 69; TEMP 36.5; O2SAT 98
[2025-08-07 12:33] LABS: Hematocrit 44.5 % (37-53); Hemoglobin 13.90 g/dL (11.27-16.99); Mean Corpuscular HGB Conc 31.2 g/dL (30-55); Mean Corpuscular Hemoglobin 27.9 pg (27-33); Mean Corpuscular Volume 89.2 fl (82-101); Nucleated Red Blood Cells % 0 %; Platelet Count 194 10^3/cmm (157-399); Red Blood Count 4.99 10^6/uL (3.85-5.65); White Blood Count 8.27 10^3/uL (3.29-11.43)
[2025-08-07 12:50] LABS: Alanine Aminotransferase 16 U/L (0-41); Albumin Level 4.1 g/dL (3.5-5.2); Alkaline Phosphatase 57 U/L (40-130); Anion Gap 16.9 (5-19); Aspartate Amino Transferase 23 U/L (0-40); Blood Urea Nitrogen 39 mg/dL (8-23); Calcium 9.1 mg/dL (8.5-10.5); Carbon Dioxide 24 mmol/L (22-29); Chloride 101 mmol/L (98-107); Globulin 3.3 g/dL (1.3-4.6); Glucose 102 mg/dL (65-115); Osmolality Calculated 294 mOsm/kg (285-295); Potassium 4.9 mmol/L (3.5-5.1); Sodium 137 mmol/L (136-145); Total Protein 7.4 g/dL (6.6-8.7)
[2025-08-07 13:46] VITALS: BP 147/78; PULSE 89; O2SAT 95
--- NOTE | 2025-08-07 13:47 | ED_ITS ---
HPI - Extremity Problem 2 General: Chief complaint: Extremity Problem,Nontraumatic Stated complaint: right foot wound Time Seen by Provider: 08/07/25 13:32 Source: patient Mode of arrival: ambulatory Limitations: no limitations History of Present Illness: 55-year-old male has history of peripher al vascular disease along with diabetes states he had his right great toe amputated roughly 2 to 3 months ago. States he noticed a small wound to the tip of his second toe on that right foot last night. He denies any pain denies any fevers denies any erythema. He denies any known injuries. Related Data Home Medications ?Medication ?Instructions ?Recorded ?Confirmed glimepiride 4 mg tablet 4 mg PO DAILY 04/03/2009/23 insulin glargine 100 unit/mL 96 unit SUBCUT DAILY 03/1209/23/22 subcutaneous solution Previous Rx's ?Medication ?Instructions ?Recorded amlodipine 10 mg tablet 10 mg PO DAILY #90 tabs 08/12 01/30 losartan 100 mg tablet 100 mg PO DAILY #90 tabs aspirin 81 mg tablet,delayed 81 mg PO DAILY #90 tabs 0 03/06/22 release rosuvastatin 20 mg tablet 20 mg PO DAILY #90 tabs 02/09 03/01 furosemide 20 mg tablet (Lasix) 20 mg PO DAILY #90 tab s 05/08/22 sulfamethoxazole 800 1 tab PO BID 10 days #20 tab s 08/07/25 mg-trimethoprim 160 mg tablet (Bactrim DS) Allergies Allergy/AdvReac Type Severity Reaction Status Date / Time lisinopril Allergy Unknown Unknown Verified 08/07/25 11:46 lithium Allergy Unknown Unknown Verified 08/07/25 11:46 olanzapine Allergy Unknown Unknown Verified 08/07/25 11:46 quetiapine Allergy Unknown Unknown Verified 08/07/25 11:46 PFS ED 2 PFSH: Medical History (Updated 08/07/25 @ 13:47 by Subha Chau MD) Peripheral Vascular Disease Diabetes mellitus Hyperlipidemia HTN (hypertension) Claudication in peripheral vascular disease Surgical History S/P CABG (coronary artery bypass graft) Family History Father Heart disease Social History Smoking and tobacco/nicotine status: former use of tobacco/nicotine Physical Exam 2 Const: COMMON NORMALS: no acute distress, patient oriented x3 and healthy appearing HENMT: COMMON NORMALS: normocephalic and atraumatic HEAD & SCALP: n ormocephalic and atraumatic Neck/C-Spine: COMMON NORMALS: full ROM and supple Chest: COMMONS NORMALS: normal inspection of the chest Resp: COMMON NORMALS: normal respiratory effort Cardio: COMMON NORMALS: regular rate RATE: regular rate Extremity: COMMON NORMALS: full ROM Neuro: COMMON NORMALS: patient oriented x3, moves all extremities and no focal motor deficits Psych: COMMON NORMALS: mental status grossly normal, Normal thought process present and cooperative THOUGHT PROCESS: Normal thought process present Skin: NARRATIVE SKIN EXAM: Very small abrasion to right second toe no bleeding at this time no necrosis no cellulitis Course 2 Vital Signs: Vital signs: Vital Signs Temperature 97.7 F 08/07/25 11:40 Pulse Rate 89 08/07/25 13:46 Blood Pressure 147/78 08/07/25 13:46 Pulse Oximetry 95 08/07/25 13:46 Oxygen Delivery Me thod Room Air 08/07/25 11:40 MDM - Extremity (Nontraumatic) Medical Decision Making Patient presents for the wound to right second toe he has no signs of cellulitis no signs of gangrene or osteomyelitis. Will place him on Bactrim prophylactically since he has had peripheral vascular disease and diabetic. 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 Labs show no significant abnormality including inflammatory markers Medical Records I reviewed the patient's medical records. Lab Data I reviewed the patient's lab results. 08/07/25 12:17 08/07/25 12:17 Laboratory Results WBC 8.27 10^3/uL (3.29-11.43) 08/07/25 12:17 RBC 4.99 10^6/uL (3.85-5.65) 08/07/25 12:17 Hgb 13.90 g/dL (11.27-16.99) 08/07/25 12:17 Hct 44.5 % (37-53) 08/07/25 12:17 MCV 89.2 fl (82-101) 08/07/25 12:17 MCH 27.9 pg (27-33) 08/07/25 12:17 MCHC 31.2 g/dL (30-55) 08/07/25 12:17 RDW 13.9 % (12.1-15.1) 08/07/25 12:17 Plt Count 194 10^3/cmm (157-399) 08/07/25 12:17 MPV 11.4 fL (7.4-10.4) H 08/07/25 12:17 Neut % (Auto) 69.0 % 08/07/25 12:17 Lymph % (Auto) 16.9 % 08/07/25 12:17 [place] % (Auto) 10.9 % 08/07/25 12:17 Eos % (Auto) 2.1 % 08/07/25 12:17 Baso % (Auto) 0.6 % 08/07/25 12:17 Neut # (Auto) 5.71 10^3/uL (1.8-7.7) 08/07/25 12:17 Lymph # (Auto) 1.4 10^3/uL (0.8-4.8) 08/07/25 12:17 [place] # (Auto) 0.9 10^3/uL (0.2-0.9) 08/07/25 12:17 Eos # (Auto) 0.2 10^3/uL (0.0-0.8) 08/07/25 12:17 Baso # (Auto) 0.1 10^3/uL (0.0-0.1) 08/07/25 12:17 Nucleated RBC % (auto) 0 % 08/07/25 12:17 Nucleated RBCs # 0.0 /100WBC 08/07/25 12:17 ESR 17 mm/hr (0-10) H 08/07/25 12:17 Sodium 137 mmol/L (136-145) 08/07/25 12:17 Potassium 4.9 mmol/L (3.5-5.1) 08/07/25 12:17 Chloride 101 mmol/L (98-107) 08/07/25 12:17 Carbon Dioxide 24 mmol/L (22-29) 08/07/25 12:17 Anion Gap 16.9 (5-19) 08/07/25 12:17 BUN 39 mg/dL (8-23) H 08/07/25 12:17 Creatinine 1.2 mg/dL (0.7-1.2) 08/07/25 12:17 GFR Calculation Not Reportable 08/07/25 12:17 Glucose 102 mg/dL (65-115) 08/07/25 12:17 Calculated Osmolality 294 mOsm/kg (285-295) 08/07/25 12:17 Calcium 9.1 mg/dL (8.5-10.5) 08/07/25 12:17 Total Bilirubin 0.4 mg/dL (0.15-1.2) 08/07/25 12:17 AST 23 U/L (0-40) 08/07/25 12:17 ALT 16 U/L (0-41) 08/07/25 12:17 Alkaline Phosphatase 57 U/L (40-130) 08/07/25 12:17 C-Reactive Protein 3.0 mg/L (0.0-4.9) 08/07/25 12:17 Total Protein 7.4 g/dL (6.6-8.7) 08/07/25 12:17 Albumin 4.1 g/dL (3.5-5.2) 08/07/25 12:17 Globulin 3.3 g/dL (1.3-4.6) 08/07/25 12:17 No radiology studies performed this visit Discharge Plan Discharge Patient Disposition: Home Clinical Impression: Open wound of right foot Qualifiers: Encounter type: initial encounter Qualified Code(s): S91.301A - Unspecified open wound, right foot, initial encounter Condition: Stable Prescriptions: New sulfamethoxazole-trimethoprim [Bactrim DS] 800-160 mg tablet 1 tab PO BID 10 Days Qty: 20 0RF No Action amlodipine 10 mg tablet 10 mg PO DAILY Qty: 90 3RF losartan 100 mg tablet 100 mg PO DAILY Qty: 90 3RF aspirin 81 mg tablet,delayed release (DR/EC) 81 mg PO DAILY Qty: 90 3RF rosuvastatin 20 mg tablet 20 mg PO DAILY Qty: 90 3RF glimepiride 4 mg tablet 4 mg PO DAILY insulin glargine 100 unit/mL solution 96 unit SUBCUT DAILY furosemide [Lasix] 20 mg tablet 20 mg PO DAILY Qty: 90 0RF Discharge Orders: Discharge ED (Routine); Ordered 08/07/25 Ordered By: Subha Chau Referrals: Cheryle Santos MD [Primary Care Provider, [facility]] Discharge Diet: Advance as tolerated Discharge Activity: Resume usual activity Patient Instructions: Acute Wound Care (ED) Print Language: Trinidadian Coding Level of Care Code ED Construction Administrator for Orestes Feliciano
== END 2025-08-07 14:00 | disposition home or self-care (01) ==
PROVIDERS: Emergency Provider Emergency Medicine; PCP Family Medicine
DX: S91.104A Unspecified open wound of right lesser toe(s) without damage to nail, initial encounter (principal); Z79.82 Long term (current) use of aspirin; Z79.4 Long term (current) use of insulin; Z87.891 Personal history of nicotine dependence; E78.5 Hyperlipidemia, unspecified; E11.9 Type 2 diabetes mellitus without complications; I10 Essential (primary) hypertension; Z89.411 Acquired absence of right great toe; X58.XXXA Exposure to other specified factors, initial encounter
CPT/HCPCS: 36415; 80053; 85025; 85651; 86140; 99283